=== PATIENT | female | born 1985 | race Caucasian/White ===

== ENCOUNTER 2017-04-26 20:30 | Emergency (ER) | payer OTHER ==
[2017-04-26 21:43] VITALS: BP 124/84
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
[2017-04-26] MEDS ORDERED: Cyclobenzaprine TAB* 10 MG PO ONE (22:44)
--- NOTE | 2017-04-27 07:20 | RAD ---
INDICATION: Trauma, low back pain. COMPARISON: There are no prior studies available for comparison. TECHNIQUE: 5 views of the lumbar spine were obtained including lateral, oblique, AP and a coned-down lateral view of the lumbar sacral junction. FINDINGS: There is a mild lumbar scoliosis convex toward the left side. The vertebra are otherwise in normal alignment. No fracture is seen. Disc spaces appear maintained. IMPRESSION: NO EVIDENCE FOR FRACTURE.
--- NOTE | 2017-04-27 07:23 | RAD ---
INDICATION: Trauma, back pain. COMPARISON: There are no prior studies available for comparison. TECHNIQUE: AP and lateral films of the dorsal spine were obtained. FINDINGS: There is a mild dorsal scoliosis convex toward the right side. The vertebra are otherwise in normal alignment. No fracture is seen. There is mild degenerative disc disease in the mid and lower dorsal spine. IMPRESSION: NO EVIDENCE FOR FRACTURE.
== END 2017-04-26 22:59 | disposition home or self-care (01) ==
LOC: UCCORT 20:30
DX: M54.5 Low back pain (principal); V89.2XXA Person injured in unspecified motor-vehicle accident, traffic, initial encounter; Y92.9 Unspecified place or not applicable; W00.0XXA Fall on same level due to ice and snow, initial encounter; Y93.9 Activity, unspecified; F17.210 Nicotine dependence, cigarettes, uncomplicated; Z32.02 Encounter for pregnancy test, result negative
CPT/HCPCS: 72070; 72110; 81003; 84702; 87086; 99212; A9270-GY; G0463

== ENCOUNTER 2017-05-26 20:01 | Emergency (ER) | payer OTHER ==
[2017-05-26 20:47] VITALS: BP 116/99
[2017-05-26] MEDS ORDERED: HYDROcodone/ACETAMIN 5-325 MG* 1 TAB PO ONE (21:01)
--- NOTE | 2017-05-26 21:29 | UC ---
Back Pain HPI - HPI Summary HPI Summary: 31 year old female with back pain .She was shoveling snow, today at 1830, fell and injury to right shoulder, states heard a "pop" after she fell. Can move shoulder. No incontinence. no numbness in arm or back. no foot drop . "tweaked" the back. it was the right shoulder that hurts and where she felt a pop. no numbness. pain with movement. waited for mom to get home to bring her here. did not hit head no QUIJANO. no vision changes [ End ] - History of Current Complaint Chief Complaint: UCUpperExtremity Stated Complaint: RIGHT SHOULDER & LOW BACK PAIN Time Seen by Provider: 05/26/17 20:56 Hx Obtained From: Patient Hx Last Menstrual Period: 05/12/17 Onset/Duration: Sudden Onset - ealier today Timing: Constant Pain Intensity: 9 - Allergies/Home Medications Allergies/Adverse Reactions: Allergies Allergy/AdvReac Type Severity Reaction Status Date / Time Adhesive Tape Allergy Rash Verified 05/26/17 20:47 ciprofloxacin [From Cipro] Allergy Hives Verified 05/26/17 20:49 Penicillins Allergy Rash Verified 05/26/17 20:49 PMH/Surg Hx/FS Hx/Imm Hx Previously Healthy: Yes - Surgical History Surgical History: None - Family History Known Family History: Positive: None, Diabetes Negative: Cardiac Disease - Social History Lives: With Family Alcohol Use: None Substance Use Type: None Smoking Status (MU): Former Smoker Type: Cigarettes Amount Used/How Often: 6 CIGarettes DAILY Length of Time of Smoking/Using Tobacco: 5 Years Have You Smoked in the Last Year: Yes When Did the Patient Quit Smoking/Using Tobacco: 01/11/14 Household Exposure Type: Cigarettes Review of Systems Musculoskeletal: Arthralgia, Decreased ROM Is Patient Immunocompromised?: No All Other Systems Reviewed And Are Negative: Yes Physical Exam Triage Information Reviewed: Yes Appearance: Well-Appearing, Pain Distress - moderate Vital Signs: Initial Vital Signs Temp 98.2 F 05/26/17 20:43 Pulse 85 05/26/17 20:43 Resp 18 05/26/17 20:43 BP 116/99 05/26/17 20:43 Pulse Ox 100 05/26/17 20:43 Vital Signs Reviewed: Yes Respiratory Exam: Normal Cardiovascular Exam: Normal Musculoskeletal: Positive: ROM Limited @ - Right shoulder with reduction in forward flexion. Cross arm (+) with some pain. Abduction reduced as well. no obvious dislocation felt in the shoulder. no humeral head disclocation palpable. clavicle intact. C spine WNL. Lumbar spine WNL and no sp tenderness. no step off. mild right paraspinal tenderness L3-4 to palpation., Other: - Mild right paraspinal tenderness. no sp tenderness no step off. neg slr. no red flags. gait antalgic except for walking and moving the shoulder which causes pain Neurological Exam: Normal Psychological Exam: Normal Skin Exam: Normal Back Pain Course/Dx - Course Course Of Treatment: no dislocation. placed in shuolder sling. f/u ortho. 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 could be rotator cuff tear. xray neg and per rads. pain almost gone at the last check up after taking meds. - Differential Dx/Diagnosis Provider Diagnoses: Rotator cuff injury/ low back strain Discharge - Discharge Plan Condition: Good Disposition: HOME Prescriptions: Ibuprofen TAB* [Motrin TAB* 600 MG] 600 mg PO Q8H PRN #30 tab PRN Reason: Pain Patient Education Materials: Rotator Cuff Injury (ED) Forms: *Work Release Referrals: Mike Tee MD [Medical Doctor] - 4 Days (Orthopedic referral for your shoulder )
--- NOTE | 2017-05-26 21:42 | RAD ---
INDICATION: Right shoulder injury. TECHNIQUE: 4 views of the right shoulder were obtained. FINDINGS: The bones are in normal alignment. No fracture is seen. Joint spaces appear maintained. IMPRESSION: NO EVIDENCE OF FRACTURE.
== END 2017-05-26 22:04 | disposition home or self-care (01) ==
LOC: UCCORT 20:01
DX: S46.001A Unspecified injury of muscle(s) and tendon(s) of the rotator cuff of right shoulder, initial encounter (principal); Z87.891 Personal history of nicotine dependence; W19.XXXA Unspecified fall, initial encounter; Y93.H1 Activity, digging, shoveling and raking; Y92.9 Unspecified place or not applicable; S39.012A Strain of muscle, fascia and tendon of lower back, initial encounter
CPT/HCPCS: 99213; G0463

== ENCOUNTER 2018-04-20 11:06 | Emergency (ER) | payer OTHER | END 2018-04-20 12:53 | disposition left against medical advice (07) | LOC: UCCORT 11:06 | DX: Z53.21 Procedure and treatment not carried out due to patient leaving prior to being seen by health care provider (principal) ==

== ENCOUNTER 2018-04-20 13:09 | Emergency (ER) | payer OTHER ==
--- NOTE | 2018-04-20 13:41 | ED ---
Influenza-Like Illness - HPI Summary HPI Summary: This patient is a 32 year old female presenting to [facility] accompanied by her daughter who also feels ill with a CC of flu like sx. She is c/o sore throat, dry cough, and diarrhea, without fever. The patient reports the pain 2/10 in severity. LNMP was 03-18-18. Hx of GERD - History of Current Complaint Chief Complaint: EDThroatPain Time Seen by Provider: 04/20/18 13:17 Hx Obtained From: Patient Onset/Duration: Still Present Severity: Moderate Associated Signs & Symptoms: Cough, Sore Throat - Allergy/Home Medications Allergies/Adverse Reactions: Allergies Allergy/AdvReac Type Severity Reaction Status Date / Time Adhesive Tape Allergy Rash Verified 04/20/18 13:15 ciprofloxacin [From Cipro] Allergy Hives Verified 04/20/18 13:15 Penicillins Allergy Rash Verified 04/20/18 13:15 PMH/Surg Hx/FS Hx/Imm Hx Endocrine/Hematology History: Reports: Hx Diabetes - type 2 Denies: Hx Thyroid Disease Cardiovascular History: Denies: Hx Hypertension, Hx Pacemaker/ICD Respiratory History: Reports: Hx Asthma Denies: Hx Chronic Obstructive Pulmonary Disease (COPD) GI History: Denies: Hx Ulcer History: Denies: Hx Renal Disease - RIGHT KIDNEY REFLUX Sensory History: Denies: Hx Hearing Aid Neurological History: Reports: Hx Migraine Psychiatric History: Denies: Hx Panic Disorder Infectious Disease History: No Infectious Disease History: Denies: Hx Clostridium Difficile, Hx Hepatitis, Hx Human Immunodeficiency Virus (HIV), Hx of Known/Suspected MRSA, Hx Shingles, Hx Tuberculosis, Hx Known/ Suspected VRE, Hx Known/Suspected VRSA, History Other Infectious Disease, Traveled Outside the [place] in Last 30 Days - Family History Known Family History: Positive: Diabetes Negative: Cardiac Disease - Social History Alcohol Use: None Substance Use Type: Reports: None Smoking Status (MU): Former Smoker Type: Cigarettes Amount Used/How Often: 6 CIGarettes DAILY Length of Time of Smoking/Using Tobacco: 5 Years Have You Smoked in the Last Year: Yes Review of Systems Negative: Fever Positive: Sore Throat Positive: Cough Positive: Diarrhea All Other Systems Reviewed And Are Negative: Yes Physical Exam - Summary Physical Exam Summary: VITAL SIGNS: Reviewed. GENERAL: Patient is a well-developed and obese female who is lying comfortable in the stretcher. Patient is not in any acute respiratory distress. HEAD AND FACE: No signs of trauma. No ecchymosis, hematomas or skull depressions. No sinus tenderness. EYES: PERRLA, EOMI x 2, No injected conjunctiva, no nystagmus. EARS: Hearing grossly intact. Ear canals and tympanic membranes are within normal limits. MOUTH: rhinorrhea. NECK: Supple, trachea is midline, no adenopathy, no JVD, no carotid bruit, no c- spine tenderness, neck with full ROM. CHEST: Symmetric, no tenderness at palpation LUNGS: Clear to auscultation bilaterally. No wheezing or crackles. CVS: Regular rate and rhythm, S1 and S2 present, no murmurs or gallops appreciated. ABDOMEN: Soft, non-tender. No signs of distention. No rebound no guarding, and no masses palpated. Bowel sounds are normal. EXTREMITIES: FROM in all major joints, no edema, no cyanosis or clubbing. NEURO: Alert and oriented x 3. No acute neurological deficits. Speech is normal and follows commands. SKIN: Dry and warm Triage Information Reviewed: Yes Vital Signs On Initial Exam: Initial Vitals Temp Pulse Resp BP Pulse Ox 98.7 F 84 16 135/98 96 04/20/18 13:13 04/20/18 13:13 04/20/18 13:13 04/20/18 13:13 04/20/18 13:13 Vital Signs Reviewed: Yes Diagnostics - Vital Signs Vital Signs Temp Pulse Resp BP Pulse Ox 04/20/18 13:13 98.7 F 84 16 135/98 96 - Laboratory Lab Statement: Any lab studies that have been ordered have been reviewed, and results considered in the medical decision making process. Flu Symptom Course/Dx - Course Assessment/Plan: Influenza A and B is negative. Rapid strep is negative. Therefore believe that the patient has an upper respiratory tract infection which with does not require any antibiotics. Patient will be discharged home with follow-up with primary care physician. She was recommended to return to the emergency department if she develops any other symptoms. - Diagnoses Differential Diagnosis/HQI/PQRI: Positive: Bronchitis, Broncholiolitis, Influenza, RSV, Upper Respiratory Infection Provider Diagnoses: URI (upper respiratory infection) Discharge - Sign-Out/Discharge Documenting (check all that apply): Patient Departure Patient Received Moderate/Deep Sedation with Procedure: No - Discharge Plan Condition: Stable Disposition: HOME Patient Education Materials: Upper Respiratory Infection (DC) Referrals: Shy Hawkins PA [Primary Care Provider] - Additional Instructions: Follow up with your primary care physician in 1-3 days. RETURN TO THE EMERGENCY DEPARTMENT FOR CHANGING OR WORSENING SYMPTOMS. - Billing Disposition and Condition Condition: STABLE Disposition: Home - Attestation Statements Document Initiated by Panfiloibe: Yes Documenting Scribe: Markos Wild Provider For Whom Tigist is Documenting (Include Credential): Wilder Stokes MD Scribe Attestation: Markos Nj , scribed for Wilder Stokes MD on 04/21/18 at 2050. Scribe Documentation Reviewed: Yes Provider Attestation: The documentation as recorded by the Markos guaman accurately reflects the service I personally performed and the decisions made by Wilder borges MD Status of Scribe Document: Viewed
[2018-04-20 14:10] LABS: Influenza A Molecular NEGATIVE (Negative); Influenza B Molecular NEGATIVE (Negative)
[2018-04-20 15:11] VITALS: BP 129/95
== END 2018-04-20 15:09 | disposition home or self-care (01) ==
LOC: ED 13:09
DX: J06.9 Acute upper respiratory infection, unspecified (principal); Z88.1 Allergy status to other antibiotic agents; Z88.0 Allergy status to penicillin; Z91.048 Other nonmedicinal substance allergy status; F17.210 Nicotine dependence, cigarettes, uncomplicated
CPT/HCPCS: 87651; 99282

== ENCOUNTER 2018-07-03 15:29 | Emergency (ER) | payer OTHER ==
[2018-07-03 15:36] VITALS: BP 133/96
--- NOTE | 2018-07-03 15:51 | UC ---
Respiratory Complaint HPI - HPI Summary HPI Summary: 32 yo female with cough x 1-2 days no fever cough not productive no f/c chest feels tight taking and deep breath cause cough - History of Current Complaint Chief Complaint: UCRespiratory Stated Complaint: DIFFICULTY BREATHING Hx Obtained From: Patient Hx Last Menstrual Period: "last month" Onset/Duration: Gradual Onset, Lasting Days Timing: Constant Severity Initially: Mild Severity Currently: Moderate Pain Intensity: 7 Pain Scale Used: 0-10 Numeric Character: Cough: Nonproductive Aggravating Factors: Deep Breaths, Nothing Alleviating Factors: Nothing Associated Signs And Symptoms: Positive: Dyspnea, Wheezing, Nasal Congestion, Sinus Discomfort - Allergies/Home Medications Allergies/Adverse Reactions: Allergies Allergy/AdvReac Type Severity Reaction Status Date / Time Adhesive Tape Allergy Rash Verified 07/03/18 15:33 ciprofloxacin [From Cipro] Allergy Hives Verified 07/03/18 15:33 Penicillins Allergy Rash Verified 07/03/18 15:33 Home Medications: Home Medications Ibuprofen TAB* [Advil TAB*] 400 mg PO Q6H PRN 07/03/18 [History Confirmed ] PMH/Surg Hx/FS Hx/Imm Hx Previously Healthy: Yes Respiratory History: Bronchitis - Surgical History Surgical History: None - Family History Known Family History: Positive: Hypertension, Diabetes, Respiratory Disease Negative: Cardiac Disease - Social History Alcohol Use: None Substance Use Type: None Smoking Status (MU): Former Smoker Type: Cigarettes Amount Used/How Often: 6 CIGarettes DAILY Length of Time of Smoking/Using Tobacco: 2 PPD x 13 Years Have You Smoked in the Last Year: Yes When Did the Patient Quit Smoking/Using Tobacco: ~2016 Household Exposure Type: Cigarettes Review of Systems All Other Systems Reviewed And Are Negative: Yes Constitutional: Positive: Fatigue Skin: Positive: Negative Eyes: Positive: Negative ENT: Positive: Nasal Discharge Respiratory: Positive: Shortness Of Breath, Cough Cardiovascular: Positive: Negative Gastrointestinal: Positive: Negative Genitourinary: Positive: Negative Motor: Positive: Negative Neurovascular: Positive: Negative Musculoskeletal: Positive: Negative Neurological: Positive: Negative Psychological: Positive: Negative Is Patient Immunocompromised?: No Physical Exam Triage Information Reviewed: Yes Appearance: Well-Appearing, No Pain Distress, Well-Nourished Vital Signs: Initial Vital Signs Temp 97.1 F 07/03/18 15:31 Pulse 83 07/03/18 15:31 Resp 24 07/03/18 15:31 BP 133/96 07/03/18 15:31 Pulse Ox 100 07/03/18 15:31 Vital Signs Reviewed: Yes Eyes: Positive: Conjunctiva Clear ENT: Positive: Hearing grossly normal, Nasal congestion, TMs normal, Uvula midline. Negative: Nasal drainage, Tonsillar swelling, Tonsillar exudate, Trismus, Muffled voice, Hoarse voice, Dental tenderness, Sinus tenderness Neck: Positive: Supple, Nontender, No Lymphadenopathy Respiratory: Positive: No respiratory distress, No accessory muscle use, Wheezing Cardiovascular: Positive: RRR, No Murmur Musculoskeletal: Positive: ROM Intact, No Edema Neurological Exam: Normal Neurological: Positive: Alert Psychological Exam: Normal Skin Exam: Normal Diagnostics - Radiology No standard instances Radiology Interpretation Completed By: Radiologist Summary of Radiographic Findings: normal Re-Evaluation - Re-Evaluation First Eval Re-Evaluation Time: 16:34 Change: Improved - markedly improved after neb/wheezing with forced expiration Second Eval Re-Evaluation Time: 17:17 Change: Improved - lungs clear Respiratory Course/Dx - Differential Dx/Diagnosis Provider Diagnosis: Acute bronchitis with bronchospasm, Elevated BP without diagnosis of hypertension Discharge - Sign-Out/Discharge Documenting (check all that apply): Patient Departure All imaging exams completed and their final reports reviewed: Yes - Discharge Plan Condition: Stable Disposition: HOME Patient Education Materials: Acute Bronchitis (ED) Referrals: Shy Hawkins PA [Primary Care Provider] - Additional Instructions: start prednisone in AM - Billing Disposition and Condition Condition: STABLE Disposition: Home
[2018-07-03] MEDS ORDERED: Ipratropium 0.5MG/2.5ML NEB* 0.5 MG/2.5 ML NEB.SOLN INH ONE ×2 (15:52→16:45)
[2018-07-03] MEDS ORDERED: Albuterol 2.5 MG/3 ML NEB.SOL* (0.083%) INH ONE ×2 (15:52→16:45)
== END 2018-07-03 17:28 | disposition home or self-care (01) ==
LOC: UCCORT 15:29
DX: J20.9 Acute bronchitis, unspecified (principal); R03.0 Elevated blood-pressure reading, without diagnosis of hypertension; Z87.891 Personal history of nicotine dependence; Z88.0 Allergy status to penicillin; Z88.1 Allergy status to other antibiotic agents; Z91.09 Other allergy status, other than to drugs and biological substances
CPT/HCPCS: 71046; 99213; G0463

== ENCOUNTER 2018-11-12 18:20 | Emergency (ER) | payer OTHER ==
--- OUTSIDE RECORDS SUMMARY | 2018-11-12 18:28 | XMS REPORT | Continuity of Care Document ---
:1985 External Reference #:[id number] Author Name Shy Hawkins PA Address [address] [place] [address] Problems Active Problems Provider Date Backache Lady Marroquin NP Onset: 06/09/2017 Social History Type Date Description Comments Sex Unknown Tobacco Use Start: Unknown End: Former Cigarette Smoker 4 pack year history, Unknown quit 2015 Smoking Status Reviewed: 06/21/17 Former Cigarette Smoker 4 pack year history, quit 2016 ETOH Use Denies alcohol use Recreational Drug Use Denies Drug Use Allergies, Adverse Reactions, Alerts Active Allergies Reaction Severity Comments Date Penicillin 05/27/2017 Cipro 05/27/2017 Adhesives 05/27/2017 Keflex 10/20/2018 Medications Active Medications SIG Qnty Indications Ordering Date Provider Prednisone 6 tablets by 21tabs M54.5 Danilo Whitaker, 10/20/2018 10mg Tablets mouth x 1 day DO then decrease by 1 pill daily until gone Cyclobenzaprine HCL 1 by mouth every 30tabs M54.5 Danilo Whitaker, 2018 10mg at bedtime x 1-2 DO Tablets weeks, then as needed for muscle spasm Ipratropium 1 vial via 180ml R05 Danilo Whitaker, 07/11/2018 [place]/Albuterol nebulizer every DO Sulfate 6 hours as 0.5-2.5(3)mg/3ML needed for Solution cough, wheezing Freestyle Insulinx test three times 100units R73.9 Danilo Whitaker, 2018 Blood Glucose Test a day and as DO needed Strips Freestyle Insulinx use as directed 1units Danilo Whitaker, 06/09/2018 Blood Glucose DO Monitoring System W/Device Kit Atorvastatin Calcium take one tablet 90tabs Sherman Danilo, 02/09/2018 80mg by mouth once DO Tablets daily. Lancets Micro Thin 33G use as directed 100units Danilo Whitaker, 2017 DO Thin 33G Misc Easyplus R13N use as directed 1units R73.9 Sherman Danilo, 06/21/2017 Self-Monitoring Blood DO Glucose System w/Device Kit Premium Blood Glucose check fsbs every 100units R73.9 Danilo Whitaker, 12/2017 Test Strips in the morning DO Strips Ibuprofen one by mouth 90tabs Danilo Whitaker, 06/21/2017 600mg Tablets every 8 hours as DO needed with food Tolterodine Tartrate 1 by mouth every Unknown ER day 4mg Caps ER 24HR History Medications Benzonatate 1 capsule up to 30caps R05 Danilo Whitaker, 07/11/2018 - 200mg 3 times a day as DO 10/19/2018 Capsules needed for cough Doxycycline Hyclate 1 tablet by 20caps R05 Danilo Whitaker, 07/11/2018 - 100mg mouth twice a DO 07/21/2018 Capsules day x 10 days Freestyle Lite Test use as directed 200units Danilo Whitaker, 06/09/2018 - daily and prn DO 06/09/2018 Strips Freestyle Lite Blood ck bs 1-2 x 1units Danilo Whitaker, 06/09/2018 - Glucose Monitoring every day DO 06/09/2018 System Device Freestyle Insulinx use as directed 1units Danilo Whitaker, 06/09/2018 - Blood Glucose DO 06/09/2018 Monitoring System W/Device Kit Bupropion HCL ER (SR) 1 by mouth twice 180tabs Shy Hawkins, 2018 - a day PA 05/24/2018 150mg Tablets ER 12HR Bupropion 1 by mouth twice 60tabs Danilo Whitaker, 05/24/2018 - Hydrochloride ER (SR) a day DO 10/19/2018 150mg Tablets ER 12HR Immunizations CPT Code Status Date Vaccine Reaction Lot # [id number] Given 12/07/2017 Tdap (Adacel) Ages 7 And Im inj completed, Pt [id number] Above Only tolerated well 28868 Refused 02/09/2018 Influenza Vac, Quadrivalent, Split, 0.5mL Dosage, Im Use Vital Signs Date Vital Result Comment 10/20/2018 8:23am Body Temperature 97.6 F Weight 278.00 lb Heart Rate 86 /min BP Systolic 136 mmHg BP Diastolic 84 mmHg Respiratory Rate 18 /min Height 65.5 inches 5'5.50" O2 % BldC Oximetry 97 % ra BMI (Body Mass Index) 45.6 kg/m2 07/11/2018 11:07am Body Temperature 98.7 F Weight 271.00 lb Heart Rate 72 /min BP Systolic 132 mmHg BP Diastolic 72 mmHg Respiratory Rate 18 /min Height 65.5 inches 5'5.50" O2 % BldC Oximetry 98 % BMI (Body Mass Index) 44.4 kg/m2 Results Test Date Facility Test Result H/L Range Note Urine HCG 10/07/[address] [facility] Urine HCG NEGATIVE Negative 1, 2 (Qualitative) (315)- - (Qualitative) Source: URINE, CLEAN CAT <SEE NOTE> 3 Urinalysis With 10/07/[address] [facility] Urine Color YELLOW Yellow Microscopic (315)- - Urine Clarity CLEAR Clear Urine Glucose - Dipstick NEGATIVE mg/dL Negative Urine Bilirubin - Dipstick NEGATIVE Negative Urine Ketone NEGATIVE mg/dL Negative Urine Specific [place] 1.010 Normal 1.010-1.030 Urine Blood LARGE Abnormal Negative Urine PH 5.5 Low 6.5-7.5 Urine Protein - Dipstick NEGATIVE mg/dL Negative Urine Urobilinogen - Dipstick 0.2 E.U./dL Normal 0.2-1.0 Urine Nitrite - Dipstick NEGATIVE Negative Urine Leuk Esterase SMALL Abnormal Negative Urine RBC 2-5 rbc/hpf 0-2 Urine WBC 5-10 wbc/hpf 0-7 Urine Epithelial Cells MODERATE /lpf None Seen 4 Urine Bacteria FEW None Seen Source: URINE, CLEAN CAT <SEE NOTE> 5 Urine Culture 10/07/[address] [facility] Urine Culture MIXED URETHRAL F 6, 7 (315)- - <SEE NOTE> Quantity 10,000 - 100,000 <SEE NOTE> 8 Urine HCG 07/15/[address] [facility] Urine HCG NEGATIVE Negative 9, 10 (Qualitative) (315)- - (Qualitative) Source: URINE, CLEAN CAT <SEE NOTE> 11 Urinalysis With 07/15/[address] [facility] Urine Color YELLOW Yellow Microscopic (315)- - Urine Clarity CLEAR Clear Urine Glucose - Dipstick NEGATIVE mg/dL Negative Urine Bilirubin - Dipstick NEGATIVE Negative Urine Ketone NEGATIVE mg/dL Negative Urine Specific [place] >= 1.030 Normal 1.010-1.030 Urine Blood TRACE Negative Urine PH 5.5 Low 6.5-7.5 Urine Protein - Dipstick TRACE mg/dL Negative Urine Urobilinogen - Dipstick 0.2 E.U./dL Normal 0.2-1.0 Urine Nitrite - Dipstick NEGATIVE Negative Urine Leuk Esterase SMALL Abnormal Negative Urine RBC 0-2 rbc/hpf 0-2 Urine WBC 30-50 wbc/hpf High 0-7 Urine Epithelial Cells MANY /lpf None Seen 12 Urine Bacteria MODERATE Abnormal None Seen Urine Amorph Sediment SMALL Negative Urine Yeast MODERATE None Seen Source: URINE, CLEAN CAT <SEE NOTE> 13 Urine Culture 07/15/2018 [facility] Urine Culture MIXED URETHRAL F 14 (315)- - <SEE NOTE> Quantity 10,000 - 100,000 <SEE NOTE> 15 1 LOWER BACK PAIN RADIATING TO ABD, URNINATION PAIN 2 FIRST MORNING SPECIMENS GENERALLY CONTAIN THE HIGHEST CONCENTRATION OF HCG AND ARE RECOMMENDED FOR EARLY DETECTION OF . Method: Quidel QuickVue One-Step Immunoassay 3 URINE, CLEAN CATCH 4 POSSIBLE UROGENITAL CONTAMINATION. 5 URINE, CLEAN CATCH 6 INTRACTABLE PAIN 7 MIXED URETHRAL TAMICA 8 10,000 - 100,000 CFU/mL SPECIMEN IS A MIX OF GRAM NEGATIVE AND GRAM POSITIVE ORGANISMS. UNABLE TO DETERMINE WHICH ORGANISMS ARE FROM THE URINARY TRACT OR THE RESULT OF SKIN VAGINAL PERIANAL CONTAMINATION DURING COLLECTION. SUGGEST REPEAT SPECIMEN IF CLINICALLY INDICATED. 9 LOWER BACK PAIN 10 FIRST MORNING SPECIMENS GENERALLY CONTAIN THE HIGHEST CONCENTRATION OF HCG AND ARE RECOMMENDED FOR EARLY DETECTION OF . Method: Quidel QuickVue One-Step Immunoassay 11 URINE, CLEAN CATCH 12 POSSIBLE UROGENITAL CONTAMINATION. POSSIBLE UROGENITAL CONTAMINATION. POSSIBLE UROGENITAL CONTAMINATION. 13 URINE, CLEAN CATCH 14 MIXED URETHRAL TAMICA 15 10,000 - 100,000 CFU/mL SPECIMEN IS A MIX OF GRAM POSITIVE ORGANISMS CONSISTENT WITH SKIN VAGINAL CONTAMINATION. SUGGEST REPEAT SPECIMEN IF CLINICALLY INDICATED. Procedures Date Code Description Status 07/11/2018 05249 Measure Blood Oxygen Level Single Determination Completed Medical Devices Description No Information Available Encounters Type Date Location Provider Dx Diagnosis Office Visit 07/11/2018 11:00a [facility] Shy Hawkins PA R05 Cough Z68.41 Body mass index (BMI) 40.0-44.9, adult Assessments Date Code Description Provider 10/20/2018 M54.5 Low back pain Shy Hawkins PA 10/20/2018 Z68.42 Body mass index (BMI) 45.0-49.9, adult Syh Hawkins PA 07/11/2018 R05 Cough Shy Hawkins PA 07/11/2018 Z68.41 Body mass index (BMI) 40.0-44.9, adult Shy Hawkins PA Plan of Treatment Future Appointment(s):11/14/2018 8:55 am - Schedule, Laboratory at [facility]2018 8:30 am - Shy Hawkins PA at [facility] Functional Status Description No Information Available Mental Status Description No Information Available Referrals Refer to Reason for Referral Status Appt Date [facility], [facility]RT Scheduled 11/08/2018 [address] [facility] [address] [phone]
--- OUTSIDE RECORDS SUMMARY | 2018-11-12 18:28 | XMS REPORT | Continuity of Care Document ---
:1985 Author Organization [facility] Address [address] [place] [address] Phone Care Team Providers Name Role Phone Velma Hansen Unavailable Unavailable Allergies, Adverse Reactions, Alerts Substance Reaction Status Penicillins Active cephalexin Active ciprofloxacin Active Medications Medication Instructions Dosage Effective Dates Status Comments (start - stop) testosterone cypionate inject 0.25 milliliter - Active 200 mg/mL (50mg) by intramuscular oil intramuscular route every week 10ml vial. code f BD Luer-Paul Syringe 1 Use as directed for - Active mL weekly IM injections. Each syringe will use 2 needles Hypodermic [place] 23 Use as directed for - Active gauge x 1 1/2" weekly IM injections, use for injecting Hypodermic [place] 21 Use as directed for - Active gauge x 1" weekly IM injections, use for drawing up medication Problems Condition Effective Dates (start - Clinical Status Comments stop) Human immunodeficiency virus [HIV] - counseling Encntr screen for dis of the bld[facility] Endocrine disorder, unspecified Transsexualism Procedures Procedure Date PREVENTIVE COUNSELING, Under 8 Minutes HEMOGLOBIN NEW PT TG EXP PROB FOCUSED LIPIDS PROFILE ROUTINE VENIPUNCTURE Results Test Name Date and Time Measure Units Reference Range Abnormal Flag Status Comments Panel Description: Hemoglobin Final Hemoglobin 12:41:07 13.00 gm/dL Final Advance Directives Directive Yes / No Effective Date File Name No information Encounters Encounter Practice Location Reason(s) Diagnoses Date Provider Providers Description For Visit Copied on Encounter [facility] TG Initial [facility] [place] [facility] [place] (chief immunodeficiency [address]. Provider: Katie berry) virus [HIV] [address] counseling[facility]ntr [place], [address] [place] the bld/bld-form [place], St, [place], [place], [place]/immun [place], [place], [place], [facility] [id number]. [place], [id number]. [id number], disorder, tel: tel: [place] unspecifiedTranssex [id number] tel: ualism [phone] Family History Family Member Diagnosis Age At Onset 1st degree relative No hx of cancer of breast, colon, endometrium or ovary 1st degree relative No hx of venous thromboembolism 1st degree relative No hx of coronary heart disease (female <65, male <55) Immunizations Vaccine Date Status Comments No information Payers Payer name Insurance type Covered democrat ID Authorization(s) Daniele TRIVEDI [facility] CI [id number] Social History Type Description Quantity Date Captured Comments Alcohol Use Details Unknown Caffeine Use Details Unknown Tobacco Use Status Unknown Smoking Status Former smoker Non-Smoking Tobacco : No Details Available : No Details Available 2018 Use Details Sex Female Vital Signs Date / Height Weight BMI Pulse Blood Temperature Respiratory Body Head BMI Pulse Inhaled Time: Rate Pressure Rate Surface Circumference percentile Ox Ox Area 66.00 282.00 45.5 138/80 -2019 in lbs 2 mm[Hg] 12:19 kg/m PM eter (2) Chief Complaint And Reason For Visit Most recent encounter only, dated '11/08/2018 11:50'. TG Initial (chief complaint). Description: Patient is here today for an initial visit. Patient&amp ;#39;s gender identity is Male. Patient's preferred pronoun is He, Him, His. Patient expresses strong desire for primary and/or secondary sex characteristics to align with gender other than ASAB and incongruence between experienced/expressed gender and primary and/or secondary sex characteristics. Age of awareness was 24. Patient is living as identified gender Patient is living identified genderat home, work and social. Patient has consulted a mental health provider. Coping with transition: Doing well. Sex assigned at was female. Patient's legal sex is female. No current/hx of injecting non-prescription hormones and/or silicone. The following body organ(s ) is/are present: breasts, cervix, ovaries, uterus and vagina. Reason For Referral Reason For Referral No information Plan Of Treatment Date Type Action Status Appointment [facility]* BOOKED History Of Present Illness Encounter Date Complaint History Of Present Illness TG Initial Patient is here today for an initial visit. Patient's gender identity is Male. Patient's preferred pronoun is He, Him, His. Patient expresses strong desire for primary and/or secondary sex characteristics to align with gender other than ASAB and incongruence between experienced/expressed gender and primary and/or secondary sex characteristics. Age of awareness was 24. Patient is living as identified gender Patient is living identified gender at home, work and social. Patient has consulted a mental health provider. Coping with transition: Doing well. Sex assigned at was female. Patient's legal sex is female. No current/hx of injecting non-prescription hormones and/or silicone. The following body organ(s) is/are present: breasts, cervix, ovaries, uterus and vagina. Functional Status Date Functional Assessment No information Medications Administered Medication Instructions Dosage Effective Dates (start - stop) Status Comments No information Instructions Date Instruction Additional Information No information Assessments Type Assessment Date assessment Human immunodeficiency virus [HIV] counseling assessment Encntr screen for dis of the bld/bld-form org/immun mechnsm assessment Endocrine disorder, unspecified assessment Transsexualism Goals Health Concern Goal Type Priority Status Date No information Medical Equipment Description Device [place] Device Identifier Effective Dates (start - stop ) Status No information Mental Status Date Cognitive Assessment Normal Orientation Health Concerns Observation Date No information Concern Status Date No information
[2018-11-12 18:33] VITALS: BP 155/101
[2018-11-12] MEDS ORDERED: Ondansetron ODT TAB* 4 MG PO ONE (18:51)
[2018-11-12] MEDS ORDERED: HYDROcodone/ACETAMIN 5-325 MG* 1 TAB PO ONE (18:51)
--- NOTE | 2018-11-12 19:02 | UC ---
UC General HPI - HPI Summary HPI Summary: pt is c/o pain in her R flank/R side of low back area since this am. + nausea but no v/d. + urinary frequency and burning. pt states she is not sure if it is a kidney stone of uti. she had a "nickel" size stone [address] Geiger did an ultrasound to break it up. she took 800mg of IB without relief. pt denies chance of . she is taking testosterone. pt went to the [facility]. After being told she would not see a doctor for 3 hours, she left and came here. in addition to her hx of kideny stone, she admits to having uti's and uti associated with a stone as well. she is uncertain if this is a uti, another stone or both. pt denies any abdominal pain, fever or hx of injury. she denies any numb/weak extremities and saddle anesthesia. pt's mother drove her here. - History of Current Complaint Chief Complaint: UCBackPain Stated Complaint: LOWER BACK PAIN Time Seen by Provider: 11/12/18 18:27 Hx Obtained From: Patient Hx Last Menstrual Period: 10/25/18 Timing: Constant Pain Intensity: 9 Aggravating: nothing Alleviating: nothing. - Allergy/Home Medications Allergies/Adverse Reactions: Allergies Allergy/AdvReac Type Severity Reaction Status Date / Time Adhesive Tape Allergy Rash Verified 11/12/18 18:33 cephalexin [From Keflex] Allergy Hives Verified 11/12/18 18:33 ciprofloxacin [From Cipro] Allergy Hives Verified 11/12/18 18:33 Penicillins Allergy Rash Verified 11/12/18 18:33 Home Medications: Home Medications Cholesterol Medication 50 mg DAILY 11/12/18 [History] Testosterone GEL (NF) [Androgel (NF)] 50 mg TOPICAL DAILY 11/12/18 [History Confirmed 11/12/18] PMH/Surg Hx/FS Hx/Imm Hx Respiratory History: Asthma GI/ History: Kidney Stones, Other - R ureteral reflux, UTI's - Surgical History Surgical History: None - Family History Known Family History: Positive: Hypertension, Diabetes, Respiratory Disease Negative: Cardiac Disease - Social History Alcohol Use: None Substance Use Type: None Smoking Status (MU): Former Smoker Type: Cigarettes Amount Used/How Often: 6 CIGarettes DAILY Length of Time of Smoking/Using Tobacco: 2 PPD x 13 Years Have You Smoked in the Last Year: Yes When Did the Patient Quit Smoking/Using Tobacco: ~2016 Household Exposure Type: Cigarettes Review of Systems All Other Systems Reviewed And Are Negative: Yes Constitutional: Negative: Fever, Chills Skin: Negative: Rash Gastrointestinal: Positive: Nausea, Other - R flank pain. Negative: Abdominal Pain, Vomiting, Diarrhea Genitourinary: Positive: Dysuria, Frequency, Urgency. Negative: Hematuria, Vaginal/Penile Discharge Musculoskeletal: Positive: Other: - R back pain. Negative: Decreased ROM Neurological: Negative: Numbness Physical Exam Triage Information Reviewed: Yes Appearance: Other: - appears mildly uncomfortable Vital Signs: Initial Vital Signs Temp 98.1 F 11/12/18 18:29 Pulse 108 11/12/18 18:29 Resp 18 11/12/18 18:29 BP 155/101 11/12/18 18:29 Pulse Ox 100 11/12/18 18:29 Vital Signs Reviewed: Yes Eyes: Positive: Conjunctiva Clear ENT: Positive: Normal ENT inspection Neck: Positive: Supple, Nontender, No Lymphadenopathy, Other: - c-spine non tender Respiratory: Positive: Lungs clear, Normal breath sounds, No respiratory distress Cardiovascular: Positive: No Murmur, Tachycardia - 100 Abdomen Description: Positive: Nontender, No Organomegaly, Soft, CVA Tenderness (R). Negative: CVA Tenderness (L), Distended, Guarding Bowel Sounds: Positive: Present Musculoskeletal: Positive: Other: - Back=No deformity or rash. Throacic and lumbar spine are non tender. ROM intact throughout without pain. 5/5 strenght, 2 + reflexes and sensation intact x4. No saddle anesthesia. steady gait. Neurological: Positive: Alert Psychological: Positive: Age Appropriate Behavior Skin Exam: Normal Skin: Negative: Rashes Diagnostics - Laboratory Lab Results: u/a=1+ protein, 1+blood and 1+ leukocytes. urine culture is pending. CT and ultrasound not available here tonight and pt refusing transfer to any ER thus KUB ordered and NAD. Course/Dx - Course Course Of Treatment: It is unclear if this is renal colic, uti or a complicated uti from renal stone thus ER transfer advised. pt is refusing ER transfer despite risk of worsening, disability and . She is a&ox3 and able to make decisions thus I must respect her refusal to go to the ER. i will tx her nausea and pain her plus do a KUB because to not evaluate and tx as much as possible is not in her best interest. I will also tx with Bactrim to cover for uti/uti from obstruction/ pyelonephritis - Differential Dx - Multi-Symptom Differential Diagnoses: Other - UTI vs kidney stone vs complicated UTI from kidney stone. - Diagnoses Provider Diagnosis: Back pain, Right flank pain Discharge ED - Sign-Out/Discharge Documenting (check all that apply): Patient Departure All imaging exams completed and their final reports reviewed: No - Discharge Plan Condition: Stable Disposition: AGAINST MEDICAL ADVICE Prescriptions: Sulfamethox/Trimethoprim DS* [Bactrim DS 800/160 TAB*] 1 tab PO BID 7 Days #14 tab Forms: *Work Release Referrals: Jaya Geiger MD [Medical Doctor] - 2 Days Additional Instructions: PLEASE GO TO THE ER AT ANY TIME IF YOU CHANGE YOUR MIND. FOLLOW UP WITH YOUR UROLOGIST FIRST THING TUESDAY AM WHEN THEY OPEN AFTER THE HOLIDAY. - Billing Disposition and Condition Condition: STABLE Disposition: Against Medical Advice - Attestation Statements Provider Attestation: I was available for consult. This patient was seen by the DONOVAN. The patient was not presented to , seen by or examined by ok -Wade Baca MD
[2018-11-12] MEDS ORDERED: Sulfamethox/Trimethoprim DS 800/160* TAB PO ONE (19:30)
--- NOTE | 2018-11-13 09:34 | UC ---
- Progress Note Progress Note: Final radiologist reading of abdominal x-ray from November 12, 2018 comes back as no radiopaque calculi is noted. Provider interpretation St. it is same therefore there is no discrepancy. Course/Dx - Diagnoses Provider Diagnoses: Back pain, Right flank pain Discharge ED - Sign-Out/Discharge Documenting (check all that apply): Patient Departure All imaging exams completed and their final reports reviewed: Yes - Discharge Plan Condition: Stable Disposition: AGAINST MEDICAL ADVICE Prescriptions: Sulfamethox/Trimethoprim DS* [Bactrim DS 800/160 TAB*] 1 tab PO BID 7 Days #14 tab Forms: *Work Release Referrals: Jaya Geiger MD [Medical Doctor] - 2 Days Additional Instructions: PLEASE GO TO THE ER AT ANY TIME IF YOU CHANGE YOUR MIND. FOLLOW UP WITH YOUR UROLOGIST FIRST THING TUESDAY AM WHEN THEY OPEN AFTER THE HOLIDAY. - Billing Disposition and Condition Condition: STABLE Disposition: Against Medical Advice
== END 2018-11-12 19:57 | disposition left against medical advice (07) ==
LOC: UCCORT 18:20
DX: M54.9 Dorsalgia, unspecified (principal); R10.9 Unspecified abdominal pain; Z87.442 Personal history of urinary calculi; Z87.891 Personal history of nicotine dependence
CPT/HCPCS: 74018; 81003; 87086; 99212; A9270-GY; G0463

== ENCOUNTER 2020-03-11 15:08 | Inpatient (IN) ==
[2020-03-11] MEDS ORDERED: Ondansetron 4 mg VIAL 2 MG/ML 2 ml VIAL IV ONE (16:53)
[2020-03-11] MEDS ORDERED: Metoclopramide 5 MG/ML VIAL (10 mg) IV SLOW PU ONE (16:53)
[2020-03-11] MEDS ORDERED: Morphine 4 MG/ML VIAL (1 ml) IV ONE (16:57)
[2020-03-11 17:16] LABS: ABS Eosinophils 0.1 10^3/ul (0-0.6); ABS Lymphocytes 2.8 10^3/ul (1.0-4.8); ABS Monocytes 0.6 10^3/ul (0-0.8); ABS Neutrophils 3.2 10^3/ul (1.5-7.7); Eosinophil % 1.8 %; Hematocrit 48 % (35-47); Hemoglobin 16.3 g/dL (12.0-16.0); Lymphocyte % 41.6 %; Mean Corpuscular HGB Conc 34 g/dL (31-36); Mean Corpuscular Hemoglobin 29 pg (27-31); Mean Corpuscular Volume 87 fL (80-97); Mean Platelet Volume 8.3 fL (7.4-10.4); Nucleated Red Blood Cells % 0.2; Platelet Count 262 10^3/uL (150-450); Red Blood Count 5.58 10^6 /uL (3.70-4.87); Red Cell Distribution Width 15 % (10-15); White Blood Count 6.8 10^3/uL (3.5-10.8)
[2020-03-11] MEDS ORDERED: Thiamine 100 MG/ML 2 ml VIAL 100 MG, Folic Acid 1 MG, Multiple Vitamin IV ADULT 10 ML i... IV ONE (17:30)
[2020-03-11 17:34] LABS: ALT 23 U/L (7-52); AST 21 U/L (13-39); Albumin 4.6 g/dL (3.2-5.2); Albumin/Globulin Ratio 1.8 (1-3); Alkaline Phosphatase 64 U/L (34-104); Anion Gap 6 mmol/L (2-11); Blood Urea Nitrogen 9 mg/dL (6-24); C Reactive Protein < 1.00 mg/L (<8.01); CO2 Carbon Dioxide 28 mmol/L (22-32); Calcium 9.6 mg/dL (8.6-10.3); Chloride 106 mmol/L (101-111); EGFR African American 77.7 (>60); EGFR Non-African American 64.3 (>60); Globulin 2.6 g/dL (2-4); Glucose 76 mg/dL (70-100); Lipase 27 U/L (11.0-82.0); Magnesium 2.2 mg/dL (1.9-2.7); Potassium 3.7 mmol/L (3.5-5.0); Sodium 140 mmol/L (135-145); Total Protein 7.2 g/dL (6.4-8.9)
[2020-03-11 17:39] LABS: HCG Pregnancy < 0.60 mIU/mL
[2020-03-11] MEDS ORDERED: Iodixanol (CONTRAST) 320 MG/ML 100 ML SDV IV ONE (17:43)
[2020-03-11] MEDS ORDERED: Lorazepam PYXIS KEY PRN (17:52)
[2020-03-11] MEDS ORDERED: LORazepam 2 mg VIAL 1 ml IV PUSH ONE (17:52)
[2020-03-11 20:19] LABS: Urine Appearance Clear; Urine Bacteria 1+ (Absent); Urine Bilirubin Negative (Negative); Urine Blood Negative (Negative); Urine Color Yellow; Urine Glucose Negative (Negative); Urine Ketones Negative (Negative); Urine Nitrite Negative (Negative); Urine Protein 2+(100 mg/dL) (Negative); Urine Red Blood Cell Absent (Absent); Urine Urobilinogen Positive (Negative); Urine White Blood Cell Trace(0-5/hpf) (Absent)
[2020-03-11 20:40] LABS: Urine Specific Gravity > 1.059 (1.010-1.030)
[2020-03-11] MEDS: HYDROmorphone 0.5 MG/0.5 ML SYRINGE IV SLOW PU PRN (22:06)
[2020-03-11] MEDS: Ondansetron 4 mg VIAL 2 MG/ML 2 ml VIAL IV PRN (22:07)
[2020-03-11] MEDS: Metoclopramide 5 MG/ML VIAL (10 mg) IV PRN (22:07)
[2020-03-12] MEDS: Lactated Ringers 1000 ml BAG 1,000 ML IVPB SCH ×3 (00:14→19:50)
[2020-03-12 05:38] LABS: ABS Eosinophils 0.1 10^3/ul (0-0.6); ABS Lymphocytes 2.7 10^3/ul (1.0-4.8); ABS Monocytes 0.7 10^3/ul (0-0.8); ABS Neutrophils 4.7 10^3/ul (1.5-7.7); Eosinophil % 1.7 %; Hematocrit 41 % (35-47); Hemoglobin 13.7 g/dL (12.0-16.0); Lymphocyte % 32.6 %; Mean Corpuscular HGB Conc 33 g/dL (31-36); Mean Corpuscular Hemoglobin 29 pg (27-31); Mean Corpuscular Volume 87 fL (80-97); Mean Platelet Volume 7.8 fL (7.4-10.4); Platelet Count 216 10^3/uL (150-450); Red Blood Count 4.75 10^6 /uL (3.70-4.87); Red Cell Distribution Width 14 % (10-15); White Blood Count 8.2 10^3/uL (3.5-10.8)
[2020-03-12 06:08] LABS: Albumin 3.5 g/dL (3.2-5.2); Albumin/Globulin Ratio 1.7 (1-3); BUN/Creatinine Ratio 7.8 (8-20); Calcium 8.6 mg/dL (8.6-10.3); EGFR African American 75.1 (>60); EGFR Non-African American 62.1 (>60); Globulin 2.1 g/dL (2-4); Potassium 3.7 mmol/L (3.5-5.0); Total Protein 5.6 g/dL (6.4-8.9)
[2020-03-12] MEDS: HYDROmorphone 0.5 MG/0.5 ML SYRINGE IV SLOW PU PRN (08:40)
[2020-03-12] MEDS: Ondansetron 4 mg VIAL 2 MG/ML 2 ml VIAL IV PRN (08:40)
[2020-03-12] MEDS ORDERED: Influenza VAC *QUAD* 2020-21* 0.5 ML SYRINGE IM ONE (09:00)
[2020-03-12] MEDS: Metoclopramide 5 MG/ML VIAL (10 mg) IV PRN ×2 (10:29→18:02)
[2020-03-12] MEDS ORDERED: diPHENhydraMINE IV 50 MG/ML 1 ml VIAL (BENADRYL) ONE (11:09)
[2020-03-12] MEDS ORDERED: Midazolam 10 mg/10 ml VIAL 1 mg/ml 10 ml VIAL (10 mg) ONE (11:09)
[2020-03-12] MEDS ORDERED: fentaNYL 100 mcg/2 ml 50 MCG/ML VIAL ONE (11:09)
[2020-03-13] MEDS: Lactated Ringers 1000 ml BAG 1,000 ML IVPB SCH (03:57)
[2020-03-13 04:57] LABS: Hematocrit 41 % (35-47); Hemoglobin 13.8 g/dL (12.0-16.0); Mean Corpuscular HGB Conc 34 g/dL (31-36); Mean Corpuscular Hemoglobin 29 pg (27-31); Mean Corpuscular Volume 86 fL (80-97); Mean Platelet Volume 8.1 fL (7.4-10.4); Platelet Count 211 10^3/uL (150-450); Red Blood Count 4.78 10^6 /uL (3.70-4.87); Red Cell Distribution Width 14 % (10-15); White Blood Count 5.9 10^3/uL (3.5-10.8)
[2020-03-13 05:18] LABS: Albumin 3.5 g/dL (3.2-5.2); Albumin/Globulin Ratio 1.7 (1-3); BUN/Creatinine Ratio 5.7 (8-20); Calcium 8.7 mg/dL (8.6-10.3); EGFR African American 90.1 (>60); EGFR Non-African American 74.5 (>60); Globulin 2.1 g/dL (2-4); Magnesium 1.8 mg/dL (1.9-2.7); Phosphorus 2.9 mg/dL (2.5-5.0); Potassium 3.7 mmol/L (3.5-5.0); Total Bilirubin 1.4 mg/dL (0.2-1.0); Total Protein 5.6 g/dL (6.4-8.9)
[2020-03-13 05:53] LABS: Vitamin D Total 25(OH) 14.4 ng/mL (20-50)
[2020-03-13] MEDS ORDERED: Magnesium Sulfate 2 gm BAG 2 GM/50 ML BAG IVPB ONE (07:41)
[2020-03-13 11:22] VITALS: BP 126/51
== END 2020-03-13 14:30 | disposition home or self-care (01) | DRG 220 ==
LOC: ED 15:08 → SSU 19:54
PROVIDERS: ADMIT Surgery Surgical Critical Care; ATTEND Surgery Surgical Critical Care

== ENCOUNTER 2020-03-19 14:46 | Inpatient (IN) ==
[2020-03-19 18:02] LABS: ABS Eosinophils 0.1 10^3/ul (0-0.6); ABS Lymphocytes 2.7 10^3/ul (1.0-4.8); ABS Monocytes 0.5 10^3/ul (0-0.8); ABS Neutrophils 3.4 10^3/ul (1.5-7.7); Eosinophil % 0.8 %; Hematocrit 47 % (35-47); Hemoglobin 15.7 g/dL (12.0-16.0); Lymphocyte % 40.6 %; Mean Corpuscular HGB Conc 33 g/dL (31-36); Mean Corpuscular Hemoglobin 29 pg (27-31); Mean Corpuscular Volume 87 fL (80-97); Mean Platelet Volume 8.2 fL (7.4-10.4); Nucleated Red Blood Cells % 0.1; Platelet Count 257 10^3/uL (150-450); Red Blood Count 5.42 10^6 /uL (3.70-4.87); Red Cell Distribution Width 15 % (10-15); White Blood Count 6.7 10^3/uL (3.5-10.8)
[2020-03-19 18:17] LABS: ALT 17 U/L (7-52); AST 18 U/L (13-39); Albumin 4.5 g/dL (3.2-5.2); Alkaline Phosphatase 59 U/L (34-104); Anion Gap 6 mmol/L (2-11); BUN/Creatinine Ratio 7.4 (8-20); Blood Urea Nitrogen 8 mg/dL (6-24); C Reactive Protein < 1.00 mg/L (<8.01); CO2 Carbon Dioxide 27 mmol/L (22-32); Calcium 9.6 mg/dL (8.6-10.3); Chloride 107 mmol/L (101-111); EGFR African American 71.1 (>60); EGFR Non-African American 58.8 (>60); Globulin 2.3 g/dL (2-4); Glucose 77 mg/dL (70-100); Lipase 23 U/L (11.0-82.0); Magnesium 2.1 mg/dL (1.9-2.7); Sodium 140 mmol/L (135-145); Total Protein 6.8 g/dL (6.4-8.9)
[2020-03-19 18:23] LABS: HCG Pregnancy < 0.60 mIU/mL
[2020-03-19] MEDS ORDERED: Thiamine 100 MG/ML 2 ml VIAL 100 MG, Folic Acid 1 MG, Multiple Vitamin IV ADULT 10 ML i... IV ONE (18:28)
[2020-03-19] MEDS ORDERED: Albuterol HFA INHALER 8 gm MDI INH PRN (20:38)
[2020-03-19] MEDS: Ondansetron 4 mg VIAL 2 MG/ML 2 ml VIAL IV PRN (23:08)
[2020-03-19] MEDS: Morphine 2 MG/ML SYRINGE IV PRN (23:45)
[2020-03-19 23:49] LABS: Urine Appearance Cloudy; Urine Bilirubin Negative (Negative); Urine Blood Negative (Negative); Urine Color Amber; Urine Glucose Negative (Negative); Urine Ketones Trace (Negative); Urine Nitrite Negative (Negative); Urine Protein 2+(100 mg/dL) (Negative); Urine Urobilinogen Positive (Negative)
[2020-03-20 00:07] LABS: Urine Bacteria Absent (Absent); Urine Red Blood Cell 3+(>10/hpf) (Absent); Urine Squamous Epithelial Cell Present (Absent); Urine White Blood Cell 3+(>20/hpf) (Absent)
[2020-03-20] MEDS: Lactated Ringers 1000 ml BAG 1,000 ML IV SCH ×3 (01:35→19:43)
[2020-03-20] MEDS: Morphine 2 MG/ML SYRINGE IV PRN ×6 (01:56→22:57)
[2020-03-20 04:40] LABS: ABS Eosinophils 0.1 10^3/ul (0-0.6); ABS Lymphocytes 2.9 10^3/ul (1.0-4.8); ABS Monocytes 0.5 10^3/ul (0-0.8); ABS Neutrophils 2.6 10^3/ul (1.5-7.7); Eosinophil % 1.3 %; Hematocrit 43 % (35-47); Hemoglobin 14.1 g/dL (12.0-16.0); Lymphocyte % 47.8 %; Mean Corpuscular HGB Conc 33 g/dL (31-36); Mean Corpuscular Hemoglobin 29 pg (27-31); Mean Corpuscular Volume 88 fL (80-97); Mean Platelet Volume 8.2 fL (7.4-10.4); Nucleated Red Blood Cells % 0.1; Platelet Count 217 10^3/uL (150-450); Red Blood Count 4.91 10^6 /uL (3.70-4.87); Red Cell Distribution Width 14 % (10-15); White Blood Count 6.1 10^3/uL (3.5-10.8)
[2020-03-20] MEDS: Ondansetron 4 mg VIAL 2 MG/ML 2 ml VIAL IV PRN ×4 (08:04→23:43)
[2020-03-20] MEDS ORDERED: Metoclopramide 5 MG/ML VIAL (10 mg) ONE (10:13)
[2020-03-20] MEDS ORDERED: HYDROmorphone 0.5 MG/0.5 ML SYRINGE IV SLOW PU PRN (10:40)
[2020-03-20 11:29] LABS: Hematocrit 43 % (35-47); Hemoglobin 14.4 g/dL (12.0-16.0); Mean Corpuscular HGB Conc 33 g/dL (31-36); Mean Corpuscular Hemoglobin 29 pg (27-31); Mean Corpuscular Volume 87 fL (80-97); Mean Platelet Volume 8.1 fL (7.4-10.4); Platelet Count 233 10^3/uL (150-450); Red Blood Count 4.96 10^6 /uL (3.70-4.87); Red Cell Distribution Width 14 % (10-15); White Blood Count 5.9 10^3/uL (3.5-10.8)
[2020-03-20 12:02] LABS: Albumin 3.8 g/dL (3.2-5.2); Albumin/Globulin Ratio 1.7 (1-3); BUN/Creatinine Ratio 11.7 (8-20); Calcium 8.4 mg/dL (8.6-10.3); EGFR African American 83.5 (>60); Globulin 2.3 g/dL (2-4); Potassium 3.8 mmol/L (3.5-5.0); Total Bilirubin 1.8 mg/dL (0.2-1.0); Total Protein 6.1 g/dL (6.4-8.9)
[2020-03-21] MEDS: Lactated Ringers 1000 ml BAG 1,000 ML IV SCH ×3 (03:38→19:13)
[2020-03-21] MEDS: Ondansetron 4 mg VIAL 2 MG/ML 2 ml VIAL IV PRN ×3 (09:07→18:18)
[2020-03-21 09:23] LABS: Albumin 3.5 g/dL (3.2-5.2); Albumin/Globulin Ratio 1.8 (1-3); BUN/Creatinine Ratio 6.5 (8-20); Calcium 8.4 mg/dL (8.6-10.3); EGFR African American 85.6 (>60); EGFR Non-African American 70.7 (>60); Magnesium 1.8 mg/dL (1.9-2.7); Phosphorus 3.4 mg/dL (2.5-5.0); Total Bilirubin 1.4 mg/dL (0.2-1.0); Total Protein 5.5 g/dL (6.4-8.9)
[2020-03-21] MEDS ORDERED: Sodium Phosphate IV 15 MMOLE in NS 0.9% 250 ml 250 ML IVPB ONE (10:19)
[2020-03-21] MEDS ORDERED: Magnesium Sulfate IV 1GM/100ML 1 GM/100 ML BAG IV ONE (10:19)
[2020-03-21] MEDS: Metoclopramide 5 MG/ML VIAL (10 mg) IV PRN (16:47)
[2020-03-22] MEDS: Lactated Ringers 1000 ml BAG 1,000 ML IV SCH ×3 (03:15→18:39)
[2020-03-22] MEDS: Metoclopramide 5 MG/ML VIAL (10 mg) IV PRN ×2 (04:33→13:10)
[2020-03-22] MEDS: Ondansetron 4 mg VIAL 2 MG/ML 2 ml VIAL IV PRN ×2 (14:14→18:04)
[2020-03-23] MEDS: Lactated Ringers 1000 ml BAG 1,000 ML IV SCH ×3 (03:05→20:03)
[2020-03-23] MEDS: Metoclopramide 5 MG/ML VIAL (10 mg) IV PRN ×2 (10:05→18:19)
[2020-03-23] MEDS: Neomycin/Polym/Bacit TOP OINT 15 GM TOPICAL SCH (22:23)
[2020-03-24] MEDS ORDERED: Acetaminophen IV 1 GM/100ML 100 ML IVPB SCH
[2020-03-24] MEDS ORDERED: Ondansetron 4 mg VIAL 2 MG/ML 2 ml VIAL IV SCH
[2020-03-24] MEDS ORDERED: fentaNYL 250 mcg/5 ml 50 MCG/ML 5 ml VIAL (250 MCG) IV SCH
[2020-03-24] MEDS ORDERED: Clindamycin 900 MG/D5W BAG 900 MG/50 ML BAG IVPB SCH
[2020-03-24] MEDS ORDERED: Lidocaine 2% PF 5 ML VIAL IV SCH
[2020-03-24] MEDS ORDERED: EPHEDrine (Pressors) 50 MG/ML VIAL IV SLOW PU SCH
[2020-03-24] MEDS ORDERED: Midazolam 2 mg/2 ml VIAL 1 mg/ml 2 ml VIAL (2 mg) IV SLOW PU SCH
[2020-03-24] MEDS ORDERED: Rocuronium 50 mg VIAL 10 mg/ml 5 ml VIAL (50 mg) IV SCH ×2
[2020-03-24] MEDS ORDERED: Propofol 10 MG/ML 20 ML BTL IV SCH
[2020-03-24] MEDS ORDERED: HYDROmorphone 1 MG/1 ML SYRINGE IV SCH
[2020-03-24] MEDS ORDERED: Dexamethasone IV 4 MG/ML VIAL 1 ml VIAL IV SLOW PU SCH
[2020-03-24] MEDS: Lactated Ringers 1000 ml BAG 1,000 ML IV SCH ×2 (06:02→19:47)
[2020-03-24] MEDS ORDERED: Naloxone 0.4 mg VIAL 0.4 mg/ml 1 ml VIAL IV PRN ×2 (10:52→13:50)
[2020-03-24] MEDS ORDERED: DiMENhydriNATE IV 50 mg/ml 1 ml VIAL IV PUSH PRN ×2 (10:52→13:50)
[2020-03-24] MEDS ORDERED: fentaNYL 100 mcg/2 ml 50 MCG/ML VIAL IV PRN ×2 (10:52→13:50)
[2020-03-24] MEDS: Neomycin/Polym/Bacit TOP OINT 15 GM TOPICAL SCH ×2 (13:32→15:22)
[2020-03-24] MEDS ORDERED: fentaNYL 100 mcg/2 ml 50 MCG/ML VIAL ONE (13:59)
[2020-03-24] MEDS ORDERED: DiMENhydriNATE IV 50 mg/ml 1 ml VIAL ONE (14:06)
[2020-03-24] MEDS ORDERED: Morphine 2 MG/ML SYRINGE ONE (15:14)
[2020-03-24] MEDS: Ondansetron 4 mg VIAL 2 MG/ML 2 ml VIAL IV PRN ×2 (15:19→19:50)
[2020-03-24] MEDS: Morphine 2 MG/ML SYRINGE IV PRN ×2 (17:32→19:52)
[2020-03-25] MEDS: Morphine 2 MG/ML SYRINGE IV PRN ×4 (00:08→08:08)
[2020-03-25] MEDS: Lactated Ringers 1000 ml BAG 1,000 ML IV SCH (03:42)
[2020-03-25 05:45] LABS: ABS Lymphocytes 1.2 10^3/ul (1.0-4.8); ABS Monocytes 0.8 10^3/ul (0-0.8); Hematocrit 43 % (35-47); Hemoglobin 14.3 g/dL (12.0-16.0); Lymphocyte % 13.6 %; Mean Corpuscular HGB Conc 33 g/dL (31-36); Mean Corpuscular Hemoglobin 29 pg (27-31); Mean Corpuscular Volume 87 fL (80-97); Mean Platelet Volume 8.5 fL (7.4-10.4); Nucleated Red Blood Cells % 0.1; Platelet Count 212 10^3/uL (150-450); Red Blood Count 4.95 10^6 /uL (3.70-4.87); Red Cell Distribution Width 14 % (10-15)
[2020-03-25 06:04] LABS: BUN/Creatinine Ratio 7.1 (8-20); Calcium 8.8 mg/dL (8.6-10.3); EGFR African American 93.8 (>60); EGFR Non-African American 77.5 (>60); Magnesium 1.8 mg/dL (1.9-2.7); Potassium 3.9 mmol/L (3.5-5.0)
[2020-03-25] MEDS ORDERED: HYDROcodone/ACET. 7.5/325 LIQ 15 ML UDC J TUBE PRN (09:34)
[2020-03-25] MEDS: oxyCODONE/Acetamin 5/325 mg TAB PO PRN ×3 (11:12→21:52)
[2020-03-25] MEDS: Ondansetron 4 mg VIAL 2 MG/ML 2 ml VIAL IV PRN ×2 (15:08→18:30)
[2020-03-25] MEDS ORDERED: Magnesium Sulfate 2 gm BAG 2 GM/50 ML BAG IVPB ONE (15:24)
[2020-03-26] MEDS: oxyCODONE/Acetamin 5/325 mg TAB PO PRN ×2 (08:34→19:27)
[2020-03-26] MEDS: Ondansetron 4 mg VIAL 2 MG/ML 2 ml VIAL IV PRN ×3 (13:48→22:28)
[2020-03-26] MEDS ORDERED: Metoclopramide 5 MG/ML VIAL (10 mg) IV ONE (15:24)
[2020-03-26] MEDS ORDERED: Metoclopramide 5 MG/ML VIAL (10 mg) ONE (15:34)
[2020-03-26] MEDS: Heparin 5000 UNITS/ML 1 mL VIAL SUBCUT SCH ×2 (15:59→22:27)
[2020-03-26] MEDS: Morphine 2 MG/ML SYRINGE IV PRN (22:34)
[2020-03-27] MEDS: oxyCODONE/Acetamin 5/325 mg TAB PO PRN ×2 (06:03→11:51)
[2020-03-27] MEDS: Heparin 5000 UNITS/ML 1 mL VIAL SUBCUT SCH (06:04)
[2020-03-27 11:26] VITALS: BP 153/81
== END 2020-03-27 13:39 | disposition home health service (06) | DRG 263 ==
LOC: ED 14:46 → SSU 14:46
PROVIDERS: ADMIT Surgery; ATTEND Surgery

== ENCOUNTER 2020-05-18 15:12 | Inpatient (IN) ==
[2020-05-18] MEDS ORDERED: NS 0.9% 1000 ml BAG 2,000 ML IV ONE (15:28)
[2020-05-18 16:10] LABS: ABS Eosinophils 0.1 10^3/ul (0-0.6); ABS Lymphocytes 2.5 10^3/ul (1.0-4.8); ABS Monocytes 0.5 10^3/ul (0-0.8); Eosinophil % 1.1 %; Hematocrit 44 % (35-47); Hemoglobin 15.1 g/dL (12.0-16.0); Lymphocyte % 35.1 %; Mean Corpuscular HGB Conc 34 g/dL (31-36); Mean Corpuscular Hemoglobin 30 pg (27-31); Mean Corpuscular Volume 86 fL (80-97); Platelet Count 254 10^3/uL (150-450); Red Blood Count 5.13 10^6 /uL (3.70-4.87); Red Cell Distribution Width 14 % (10-15)
[2020-05-18 16:24] LABS: Activated Partial Thrombo Time 31.1 seconds (26.0-38.0); Albumin 4.1 g/dL (3.2-5.2); Albumin/Globulin Ratio 1.4 (1-3); BUN/Creatinine Ratio 9.5 (8-20); C Reactive Protein 4.47 mg/L (<8.01); Calcium 9.4 mg/dL (8.6-10.3); EGFR African American 82.5 (>60); EGFR Non-African American 68.2 (>60); INR 1.1 (0.82-1.09); Potassium 3.6 mmol/L (3.5-5.0); Total Bilirubin 0.8 mg/dL (0.2-1.0); Total Protein 7.1 g/dL (6.4-8.9)
[2020-05-18] MEDS ORDERED: Ondansetron 4 mg VIAL 2 MG/ML 2 ml VIAL IV ONE (17:40)
[2020-05-18] MEDS ORDERED: Morphine 4 MG/ML VIAL (1 ml) IV ONE (17:40)
[2020-05-18] MEDS ORDERED: Albuterol HFA INHALER 8 gm MDI INH PRN (17:52)
[2020-05-18] MEDS: Pantoprazole VIAL 40 MG VIAL IV SCH (19:48)
[2020-05-18] MEDS: Ondansetron 4 mg VIAL 2 MG/ML 2 ml VIAL IV PRN (19:48)
[2020-05-18] MEDS: NS 0.9% 1000 ml BAG 1,000 ML IV SCH (21:05)
[2020-05-19] MEDS: NS 0.9% 1000 ml BAG 1,000 ML IV SCH (02:47)
[2020-05-19 06:25] LABS: BUN/Creatinine Ratio 8.9 (8-20); Calcium 8.6 mg/dL (8.6-10.3); EGFR African American 87.8 (>60); EGFR Non-African American 72.6 (>60); Potassium 3.9 mmol/L (3.5-5.0)
[2020-05-19] MEDS: Pantoprazole VIAL 40 MG VIAL IV SCH (07:27)
[2020-05-19] MEDS: Ondansetron 4 mg VIAL 2 MG/ML 2 ml VIAL IV PRN (07:27)
[2020-05-19] MEDS: Carboxymethylcellulose/Glyceri 10 ML OPHTH.GEL lubricant eye gel BOTH EYES SCH ×2 (10:26→20:54)
[2020-05-20] MEDS: Pantoprazole VIAL 40 MG VIAL IV SCH (09:58)
[2020-05-20] MEDS: Carboxymethylcellulose/Glyceri 10 ML OPHTH.GEL lubricant eye gel BOTH EYES SCH (09:58)
[2020-05-20 11:08] VITALS: BP 130/78
== END 2020-05-20 13:40 | disposition home or self-care (01) | DRG 252 ==
LOC: ED 15:12 → SUATTDRO 17:49 → SSU 19:31
PROVIDERS: ADMIT Internal Medicine; ATTEND Surgery

== ENCOUNTER 2020-06-11 06:39 | Inpatient (IN) ==
[~2020-06-11 06:39] MED LIST: Buffered Lidocaine 1% SYRIN 1 ml INTRADERM ONE; Dexamethasone IV 4 MG/ML VIAL 1 ml VIAL IV SLOW PU ONE; Famotidine IV 10 MG/ML 2 ml VIAL (20 mg) IV ONE; Lactated Ringers 1000 ml BAG 1,000 ML IV SCH
[2020-06-11] MEDS ORDERED: Heparin 5000 UNITS/ML 1 mL VIAL ONE (06:48)
[2020-06-11] MEDS ORDERED: Dexamethasone IV 4 MG/ML VIAL 1 ml VIAL ONE ×2 (06:48→13:18)
[2020-06-11] MEDS ORDERED: Famotidine IV 10 MG/ML 2 ml VIAL (20 mg) ONE (06:49)
[2020-06-11] MEDS ORDERED: Clindamycin 900 MG/D5W BAG 900 MG/50 ML BAG IVPB ONE ×2 (06:49→13:37)
[2020-06-11] MEDS ORDERED: Midazolam 2 mg/2 ml VIAL 1 mg/ml 2 ml VIAL (2 mg) ONE (07:58)
[2020-06-11] MEDS ORDERED: fentaNYL 250 mcg/5 ml 50 MCG/ML 5 ml VIAL (250 MCG) ONE ×2 (07:58→11:13)
[2020-06-11] MEDS ORDERED: Methylene Blue 0.5 % 50 MG/10 ML AMP IV ONE (08:12)
[2020-06-11] MEDS ORDERED: Bupivacaine 0.25% EPI 200,000 30 ML SDV ONE (08:13)
[2020-06-11] MEDS ORDERED: Lidocaine 2% PF 5 ML VIAL ONE (08:15)
[2020-06-11] MEDS ORDERED: Rocuronium 50 mg VIAL 10 mg/ml 5 ml VIAL (50 mg) ONE ×3 (08:15→10:34)
[2020-06-11] MEDS ORDERED: Propofol 10 MG/ML 20 ML BTL ONE (08:16)
[2020-06-11] MEDS ORDERED: HYDROmorphone 1 MG/1 ML SYRINGE ONE ×2 (09:23→15:07)
[2020-06-11] MEDS ORDERED: Labetalol IV 5 MG/ML 20 ml VIAL ONE (09:56)
[2020-06-11] MEDS ORDERED: Phenylephrine 40 mcg/mL 10mL (400mcg) SYRINGE ONE (10:08)
[2020-06-11] MEDS ORDERED: Phenylephrine IV 10 MG/ML 1 ml VIAL ONE (10:52)
[2020-06-11] MEDS ORDERED: fentaNYL 100 mcg/2 ml 50 MCG/ML VIAL IV PRN (11:46)
[2020-06-11] MEDS ORDERED: Prochlorperazine 5 mg/ml 2 ml VIAL (10 mg) IV PRN (11:46)
[2020-06-11] MEDS ORDERED: Naloxone 0.4 mg VIAL 0.4 mg/ml 1 ml VIAL IV PRN (11:46)
[2020-06-11] MEDS ORDERED: Furosemide 20 mg/2 ml IV VIAL ONE (14:06)
[2020-06-11] MEDS ORDERED: NS 0.9% 500 ml BAG 500 ML IV PRN (15:00)
[2020-06-11] MEDS ORDERED: Ondansetron 4 mg VIAL 2 MG/ML 2 ml VIAL IV PRN (15:00)
[2020-06-11] MEDS ORDERED: diPHENhydraMINE IV 50 MG/ML 1 ml VIAL (BENADRYL) SLOW PUSH PRN (15:00)
[2020-06-11] MEDS ORDERED: Prochlorperazine 5 mg/ml 2 ml VIAL (10 mg) ONE (15:07)
[2020-06-11] MEDS: HYDROmorphone 1 MG/1 ML SYRINGE IV PRN ×2 (15:09→15:18)
[2020-06-11] MEDS ORDERED: Albuterol/Ipratropium NEB.SOL (2.5/0.5 MG) 3 ML NEB.SOLN INH PRN (15:16)
[2020-06-11] MEDS: Lactated Ringers 1000 ml BAG 1,000 ML IV SCH (16:30)
[2020-06-11] MEDS ORDERED: Albuterol HFA INHALER 8 gm MDI INH PRN (16:43)
[2020-06-11] MEDS: Heparin 5000 UNITS/ML 1 mL VIAL SUBCUT SCH (21:05)
[2020-06-11] MEDS: Famotidine IV 10 MG/ML 2 ml VIAL (20 mg) IV SLOW PU SCH (21:05)
[2020-06-11] MEDS ORDERED: NS 0.9% 1000 ml BAG 1,000 ML IV ONE (23:19)
[2020-06-12] MEDS: Lactated Ringers 1000 ml BAG 1,000 ML IV SCH ×2 (00:27→07:12)
[2020-06-12] MEDS: Heparin 5000 UNITS/ML 1 mL VIAL SUBCUT SCH ×3 (06:10→21:01)
[2020-06-12] MEDS: Famotidine IV 10 MG/ML 2 ml VIAL (20 mg) IV SLOW PU SCH ×2 (09:41→21:01)
[2020-06-12] MEDS: D5W 1/2 NS KCl 20 meq 1000 ml 1,000 ML IV SCH ×2 (14:51→23:15)
[2020-06-12] MEDS: HYDROcodone/ACET. 7.5/325 LIQ 15 ML UDC PO PRN (15:20)
[2020-06-12] MEDS: HYDROmorphone 0.5 MG/0.5 ML SYRINGE IV SLOW PU PRN (19:41)
[2020-06-13] MEDS: HYDROcodone/ACET. 7.5/325 LIQ 15 ML UDC PO PRN ×3 (02:22→21:09)
[2020-06-13] MEDS: Heparin 5000 UNITS/ML 1 mL VIAL SUBCUT SCH ×3 (05:12→21:10)
[2020-06-13 06:29] LABS: ABS Lymphocytes 1.8 10^3/ul (1.0-4.8); ABS Monocytes 0.7 10^3/ul (0-0.8); ABS Neutrophils 4.2 10^3/ul (1.5-7.7); Eosinophil % 0.5 %; Hematocrit 35 % (35-47); Hemoglobin 11.9 g/dL (12.0-16.0); Lymphocyte % 26.7 %; Mean Corpuscular HGB Conc 34 g/dL (31-36); Mean Corpuscular Hemoglobin 29 pg (27-31); Mean Corpuscular Volume 87 fL (80-97); Mean Platelet Volume 8.3 fL (7.4-10.4); Platelet Count 159 10^3/uL (150-450); Red Blood Count 4.06 10^6 /uL (3.70-4.87); Red Cell Distribution Width 15 % (10-15); White Blood Count 6.9 10^3/uL (3.5-10.8)
[2020-06-13 06:49] LABS: BUN/Creatinine Ratio 4.8 (8-20); Calcium 8.2 mg/dL (8.6-10.3); EGFR African American 132.5 (>60); EGFR Non-African American 109.5 (>60); Potassium 3.6 mmol/L (3.5-5.0)
[2020-06-13] MEDS: D5W 1/2 NS KCl 20 meq 1000 ml 1,000 ML IV SCH (07:21)
[2020-06-13] MEDS: HYDROmorphone 1 MG/1 ML SYRINGE IV SLOW PU PRN ×3 (07:21→16:41)
[2020-06-13] MEDS: Famotidine IV 10 MG/ML 2 ml VIAL (20 mg) IV SLOW PU SCH ×2 (08:38→21:10)
[2020-06-13] MEDS ORDERED: Pneumococcal Vac 23-Polyvalent IM ONE (09:00)
[2020-06-14] MEDS: HYDROmorphone 1 MG/1 ML SYRINGE IV SLOW PU PRN (02:41)
[2020-06-14] MEDS: Heparin 5000 UNITS/ML 1 mL VIAL SUBCUT SCH (05:05)
[2020-06-14] MEDS: HYDROcodone/ACET. 7.5/325 LIQ 15 ML UDC PO PRN (05:08)
[2020-06-14] MEDS: HYDROmorphone 0.5 MG/0.5 ML SYRINGE IV SLOW PU PRN (06:48)
[2020-06-14 08:22] VITALS: BP 120/71
[2020-06-14] MEDS: Famotidine IV 10 MG/ML 2 ml VIAL (20 mg) IV SLOW PU SCH (08:56)
[2020-06-14] MEDS ORDERED: Scopolamine PATCH Remove NOTE PATCH OFF SCH (09:00)
== END 2020-06-14 10:50 | disposition home or self-care (01) | DRG 222 ==
LOC: AA 06:39 → SSU 16:37
PROVIDERS: ADMIT Surgery; ATTEND Surgery

== ENCOUNTER 2020-06-16 11:01 | Inpatient (IN) ==
[2020-06-16] MEDS ORDERED: Ondansetron 4 mg VIAL 2 MG/ML 2 ml VIAL IV ONE (11:24)
[2020-06-16] MEDS ORDERED: Morphine 4 MG/ML VIAL (1 ml) IV ONE ×2 (11:24→12:24)
[2020-06-16 11:33] LABS: ABS Eosinophils 0.2 10^3/ul (0-0.6); ABS Lymphocytes 1.7 10^3/ul (1.0-4.8); ABS Monocytes 0.5 10^3/ul (0-0.8); Eosinophil % 2.3 %; Hematocrit 40 % (35-47); Hemoglobin 13.3 g/dL (12.0-16.0); Lymphocyte % 23.3 %; Mean Corpuscular HGB Conc 33 g/dL (31-36); Mean Corpuscular Hemoglobin 29 pg (27-31); Mean Corpuscular Volume 87 fL (80-97); Mean Platelet Volume 7.9 fL (7.4-10.4); Platelet Count 269 10^3/uL (150-450); Red Blood Count 4.63 10^6 /uL (3.70-4.87); Red Cell Distribution Width 15 % (10-15); White Blood Count 7.4 10^3/uL (3.5-10.8)
[2020-06-16 11:51] LABS: ALT 34 U/L (7-52); Albumin 3.7 g/dL (3.2-5.2); Albumin/Globulin Ratio 1.4 (1-3); Alkaline Phosphatase 89 U/L (34-104); BUN/Creatinine Ratio 6.9 (8-20); Blood Urea Nitrogen 5 mg/dL (6-24); C Reactive Protein 23.39 mg/L (<8.01); CO2 Carbon Dioxide 26 mmol/L (22-32); Calcium 9.2 mg/dL (8.6-10.3); Chloride 105 mmol/L (101-111); EGFR African American 113.6 (>60); EGFR Non-African American 93.9 (>60); Globulin 2.7 g/dL (2-4); Glucose 89 mg/dL (70-100); Sodium 137 mmol/L (135-145); Total Protein 6.4 g/dL (6.4-8.9)
[2020-06-16 12:04] LABS: Anion Gap 6 mmol/L (2-11)
[2020-06-16] MEDS ORDERED: Iohexol 300 (CONTRAST) 10 ML SDV IV ONE (12:06)
[2020-06-16] MEDS ORDERED: LORazepam 2 mg VIAL 1 ml IV PUSH ONE (12:56)
[2020-06-16] MEDS ORDERED: Lorazepam PYXIS KEY PRN ×2 (12:56→13:58)
[2020-06-16 12:57] LABS: Urine Appearance Cloudy; Urine Bilirubin Negative (Negative); Urine Blood 1+ (Negative); Urine Color Yellow; Urine Glucose Negative (Negative); Urine Ketones Trace (Negative); Urine Nitrite Positive (Negative); Urine Protein Negative (Negative); Urine Specific Gravity 1.009 (1.002-1.030); Urine Urobilinogen Positive (Negative)
[2020-06-16 13:16] LABS: Urine Bacteria 1+ (Absent); Urine Red Blood Cell Trace(0-2/hpf) (Absent); Urine White Blood Cell 3+(>20/hpf) (Absent)
[2020-06-16 13:50] LABS: Lipase 15 U/L (11.0-82.0)
[2020-06-16] MEDS ORDERED: LORazepam 2 mg VIAL 1 ml IV PUSH PRN (13:58)
[2020-06-16 16:39] LABS: INR 1.21 (0.82-1.09)
[2020-06-16 17:01] LABS: Potassium Redraw 3.7 mmol/L (3.5-5.0)
[2020-06-16] MEDS ORDERED: Albuterol/Ipratropium NEB.SOL (2.5/0.5 MG) 3 ML NEB.SOLN INH PRN (17:04)
[2020-06-16] MEDS ORDERED: Albuterol HFA INHALER 8 gm MDI INH PRN (17:21)
[2020-06-16] MEDS: D5LR 1000 ml BAG 1,000 ML IV SCH (17:28)
[2020-06-16] MEDS: HYDROcodone/ACET. 7.5/325 LIQ 15 ML UDC PO PRN ×2 (17:29→22:25)
[2020-06-16] MEDS: Heparin 5000 UNITS/ML 1 mL VIAL SUBCUT SCH (21:19)
[2020-06-16] MEDS: Famotidine IV 10 MG/ML 2 ml VIAL (20 mg) IV SLOW PU SCH (21:19)
[2020-06-16] MEDS: Ondansetron 4 mg VIAL 2 MG/ML 2 ml VIAL IV PRN (22:22)
[2020-06-17] MEDS: Heparin 5000 UNITS/ML 1 mL VIAL SUBCUT SCH ×3 (04:57→21:33)
[2020-06-17] MEDS: Morphine 2 MG/ML SYRINGE IV PRN ×3 (06:08→14:50)
[2020-06-17 08:53] LABS: ABS Eosinophils 0.2 10^3/ul (0-0.6); ABS Lymphocytes 1.7 10^3/ul (1.0-4.8); ABS Monocytes 0.4 10^3/ul (0-0.8); ABS Neutrophils 2.9 10^3/ul (1.5-7.7); Eosinophil % 3.1 %; Hematocrit 39 % (35-47); Hemoglobin 12.9 g/dL (12.0-16.0); Lymphocyte % 32.6 %; Mean Corpuscular HGB Conc 33 g/dL (31-36); Mean Corpuscular Hemoglobin 29 pg (27-31); Mean Corpuscular Volume 87 fL (80-97); Mean Platelet Volume 7.7 fL (7.4-10.4); Platelet Count 259 10^3/uL (150-450); Red Blood Count 4.45 10^6 /uL (3.70-4.87); Red Cell Distribution Width 15 % (10-15); White Blood Count 5.2 10^3/uL (3.5-10.8)
[2020-06-17 09:15] LABS: Albumin 3.6 g/dL (3.2-5.2); Albumin/Globulin Ratio 1.4 (1-3); BUN/Creatinine Ratio 8.1 (8-20); Calcium 9.3 mg/dL (8.6-10.3); EGFR African American 92.5 (>60); EGFR Non-African American 76.5 (>60); Globulin 2.6 g/dL (2-4); Potassium 3.8 mmol/L (3.5-5.0); Total Bilirubin 1.1 mg/dL (0.2-1.0); Total Protein 6.2 g/dL (6.4-8.9)
[2020-06-17] MEDS: HYDROcodone/ACET. 7.5/325 LIQ 15 ML UDC PO PRN (09:53)
[2020-06-17] MEDS: Famotidine IV 10 MG/ML 2 ml VIAL (20 mg) IV SLOW PU SCH ×2 (09:56→21:34)
[2020-06-17] MEDS: buPROPion SR 200 mg TAB.SR PO SCH (09:56)
[2020-06-17] MEDS: Neomycin/Polym/Bacit TOP OINT 15 GM TOPICAL SCH (10:00)
[2020-06-17] MEDS: CMCS: Solifenacin 5 mg TAB (NF) PO SCH (10:04)
[2020-06-17] MEDS: Ondansetron 4 mg VIAL 2 MG/ML 2 ml VIAL IV PRN ×2 (10:05→17:56)
[2020-06-17] MEDS: D5LR 1000 ml BAG 1,000 ML IV SCH ×2 (10:07→23:22)
[2020-06-17] MEDS ORDERED: oxyCODONE/Acetamin 5/325 mg TAB ONE (16:00)
[2020-06-17] MEDS: oxyCODONE/Acetamin 5/325 mg TAB PO PRN ×2 (16:03→21:34)
[2020-06-17] MEDS: Nitrofurantoin (monohydrate/macrocrystals) 100 mg CAP PO SCH (21:34)
[2020-06-18] MEDS: HYDROmorphone 0.5 MG/0.5 ML SYRINGE IV SLOW PU PRN ×3 (00:02→17:04)
[2020-06-18] MEDS: Heparin 5000 UNITS/ML 1 mL VIAL SUBCUT SCH ×3 (05:28→22:16)
[2020-06-18] MEDS: Neomycin/Polym/Bacit TOP OINT 15 GM TOPICAL SCH (08:37)
[2020-06-18] MEDS: CMCS: Solifenacin 5 mg TAB (NF) PO SCH (08:37)
[2020-06-18] MEDS: Famotidine IV 10 MG/ML 2 ml VIAL (20 mg) IV SLOW PU SCH ×2 (08:37→22:17)
[2020-06-18] MEDS: Nitrofurantoin (monohydrate/macrocrystals) 100 mg CAP PO SCH ×2 (08:38→19:57)
[2020-06-18] MEDS: buPROPion SR 200 mg TAB.SR PO SCH (08:38)
[2020-06-18] MEDS: oxyCODONE/Acetamin 5/325 mg TAB PO PRN ×3 (08:41→22:16)
[2020-06-18] MEDS: SUMAtriptan Subcut 6 MG/0.5 ML VIAL SUBCUT PRN ×2 (15:11→16:57)
[2020-06-18] MEDS: D5LR 1000 ml BAG 1,000 ML IV SCH (19:43)
[2020-06-19] MEDS: HYDROmorphone 0.5 MG/0.5 ML SYRINGE IV SLOW PU PRN ×4 (00:23→21:40)
[2020-06-19 04:45] LABS: ABS Eosinophils 0.2 10^3/ul (0-0.6); ABS Monocytes 0.5 10^3/ul (0-0.8); ABS Neutrophils 2.8 10^3/ul (1.5-7.7); Eosinophil % 3.2 %; Hematocrit 36 % (35-47); Lymphocyte % 36.9 %; Mean Corpuscular HGB Conc 34 g/dL (31-36); Mean Corpuscular Hemoglobin 29 pg (27-31); Mean Corpuscular Volume 88 fL (80-97); Mean Platelet Volume 7.6 fL (7.4-10.4); Platelet Count 254 10^3/uL (150-450); Red Blood Count 4.09 10^6 /uL (3.70-4.87); Red Cell Distribution Width 15 % (10-15); White Blood Count 5.5 10^3/uL (3.5-10.8)
[2020-06-19] MEDS: oxyCODONE/Acetamin 5/325 mg TAB PO PRN ×2 (04:53→13:30)
[2020-06-19] MEDS: Heparin 5000 UNITS/ML 1 mL VIAL SUBCUT SCH ×3 (04:54→21:04)
[2020-06-19] MEDS: Famotidine IV 10 MG/ML 2 ml VIAL (20 mg) IV SLOW PU SCH ×2 (09:19→21:04)
[2020-06-19] MEDS: Nitrofurantoin (monohydrate/macrocrystals) 100 mg CAP PO SCH ×2 (09:19→21:02)
[2020-06-19] MEDS: CMCS: Solifenacin 5 mg TAB (NF) PO SCH (09:19)
[2020-06-19] MEDS: buPROPion SR 200 mg TAB.SR PO SCH (09:20)
[2020-06-19] MEDS: Neomycin/Polym/Bacit TOP OINT 15 GM TOPICAL SCH (10:16)
[2020-06-19] MEDS: SUMAtriptan Subcut 6 MG/0.5 ML VIAL SUBCUT PRN ×2 (11:25→21:40)
[2020-06-19 13:20] LABS: Albumin 3.4 g/dL (3.2-5.2); Albumin/Globulin Ratio 1.5 (1-3); BUN/Creatinine Ratio 5.7 (8-20); Calcium 8.9 mg/dL (8.6-10.3); EGFR African American 91.3 (>60); EGFR Non-African American 75.5 (>60); Globulin 2.2 g/dL (2-4); Total Bilirubin 0.6 mg/dL (0.2-1.0); Total Protein 5.6 g/dL (6.4-8.9)
[2020-06-19] MEDS ORDERED: Butalb/Acetamin/Caff TAB 325-50-40MG PO PRN (13:44)
[2020-06-19] MEDS ORDERED: Butalb/Acetamin/Caff TAB 325-50-40MG PO ONE (14:21)
[2020-06-19] MEDS: D5LR 1000 ml BAG 1,000 ML IV SCH (14:27)
[2020-06-20] MEDS: Heparin 5000 UNITS/ML 1 mL VIAL SUBCUT SCH ×3 (05:45→20:54)
[2020-06-20] MEDS: Famotidine IV 10 MG/ML 2 ml VIAL (20 mg) IV SLOW PU SCH ×2 (08:24→20:53)
[2020-06-20] MEDS: oxyCODONE/Acetamin 5/325 mg TAB PO PRN ×3 (08:25→23:15)
[2020-06-20] MEDS: Nitrofurantoin (monohydrate/macrocrystals) 100 mg CAP PO SCH (08:26)
[2020-06-20] MEDS: buPROPion SR 200 mg TAB.SR PO SCH (08:26)
[2020-06-20] MEDS: CMCS: Solifenacin 5 mg TAB (NF) PO SCH (08:26)
[2020-06-20] MEDS: Neomycin/Polym/Bacit TOP OINT 15 GM TOPICAL SCH (10:40)
[2020-06-20] MEDS: DOXYcycline 100 MG in NS 0.9% 250 ml 250 ML IVPB SCH ×2 (12:06→23:13)
[2020-06-20] MEDS: HYDROmorphone 0.5 MG/0.5 ML SYRINGE IV SLOW PU PRN ×2 (13:01→20:49)
[2020-06-20] MEDS: D5LR 1000 ml BAG 1,000 ML IV SCH (14:17)
[2020-06-20] MEDS: Butalb/Acetamin/Caff TAB 325-50-40MG PO PRN (14:21)
[2020-06-20] MEDS: Ondansetron 4 mg VIAL 2 MG/ML 2 ml VIAL IV PRN (21:00)
[2020-06-21] MEDS: Heparin 5000 UNITS/ML 1 mL VIAL SUBCUT SCH ×3 (05:17→20:59)
[2020-06-21] MEDS: buPROPion SR 200 mg TAB.SR PO SCH (09:09)
[2020-06-21] MEDS: CMCS: Solifenacin 5 mg TAB (NF) PO SCH (09:09)
[2020-06-21] MEDS: Neomycin/Polym/Bacit TOP OINT 15 GM TOPICAL SCH (09:10)
[2020-06-21] MEDS: Famotidine IV 10 MG/ML 2 ml VIAL (20 mg) IV SLOW PU SCH ×2 (09:10→21:00)
[2020-06-21] MEDS: oxyCODONE/Acetamin 5/325 mg TAB PO PRN ×2 (09:38→20:59)
[2020-06-21] MEDS: Butalb/Acetamin/Caff TAB 325-50-40MG PO PRN (09:38)
[2020-06-21] MEDS: Ondansetron 4 mg VIAL 2 MG/ML 2 ml VIAL IV PRN ×2 (09:39→20:59)
[2020-06-21] MEDS: D5LR 1000 ml BAG 1,000 ML IV SCH (11:25)
[2020-06-21] MEDS: Aztreonam 1 GM in NS 0.9% 50 ML 50 ML IV SCH ×3 (11:25→15:34)
[2020-06-21] MEDS: HYDROmorphone 0.5 MG/0.5 ML SYRINGE IV SLOW PU PRN ×2 (11:27→18:00)
[2020-06-21] MEDS ORDERED: Iohexol 350 (CONTRAST) 500 ML MDV IV ONE (12:49)
[2020-06-22] MEDS: Aztreonam 1 GM in NS 0.9% 50 ML 50 ML IV SCH ×3 (00:21→15:32)
[2020-06-22] MEDS: Butalb/Acetamin/Caff TAB 325-50-40MG PO PRN ×3 (02:37→21:44)
[2020-06-22] MEDS: HYDROmorphone 0.5 MG/0.5 ML SYRINGE IV SLOW PU PRN ×4 (02:38→21:31)
[2020-06-22] MEDS: Heparin 5000 UNITS/ML 1 mL VIAL SUBCUT SCH ×3 (05:25→21:30)
[2020-06-22] MEDS: Famotidine IV 10 MG/ML 2 ml VIAL (20 mg) IV SLOW PU SCH ×2 (09:02→21:31)
[2020-06-22] MEDS: CMCS: Solifenacin 5 mg TAB (NF) PO SCH (09:11)
[2020-06-22] MEDS: buPROPion SR 200 mg TAB.SR PO SCH (09:11)
[2020-06-22] MEDS: oxyCODONE/Acetamin 5/325 mg TAB PO PRN ×2 (11:40→16:29)
[2020-06-22] MEDS: Neomycin/Polym/Bacit TOP OINT 15 GM TOPICAL SCH (11:40)
[2020-06-22] MEDS: D5LR 1000 ml BAG 1,000 ML IV SCH (12:59)
[2020-06-22] MEDS: Ondansetron 4 mg VIAL 2 MG/ML 2 ml VIAL IV PRN (13:02)
[2020-06-22] MEDS: Multivitamins/Minerals TAB PO SCH (15:32)
[2020-06-23] MEDS: Aztreonam 1 GM in NS 0.9% 50 ML 50 ML IV SCH ×4 (00:02→22:52)
[2020-06-23] MEDS: HYDROmorphone 0.5 MG/0.5 ML SYRINGE IV SLOW PU PRN (04:27)
[2020-06-23] MEDS: Heparin 5000 UNITS/ML 1 mL VIAL SUBCUT SCH ×3 (04:27→22:48)
[2020-06-23] MEDS: D5LR 1000 ml BAG 1,000 ML IV SCH (08:33)
[2020-06-23] MEDS: Famotidine IV 10 MG/ML 2 ml VIAL (20 mg) IV SLOW PU SCH ×2 (08:35→22:48)
[2020-06-23] MEDS: CMCS: Solifenacin 5 mg TAB (NF) PO SCH (08:36)
[2020-06-23] MEDS: Butalb/Acetamin/Caff TAB 325-50-40MG PO PRN (08:37)
[2020-06-23] MEDS: Multivitamins/Minerals TAB PO SCH (08:38)
[2020-06-23] MEDS: Neomycin/Polym/Bacit TOP OINT 15 GM TOPICAL SCH (08:39)
[2020-06-23] MEDS: buPROPion SR 200 mg TAB.SR PO SCH (08:39)
[2020-06-23] MEDS: oxyCODONE/Acetamin 5/325 mg TAB PO PRN ×3 (08:45→22:45)
[2020-06-23 08:57] LABS: Vitamin D Total 25(OH) 12.5 ng/mL (20-50)
[2020-06-23] MEDS ORDERED: methylPREDNISolone 125 mg 2 ML VIAL IV ONE (12:53)
[2020-06-23] MEDS ORDERED: Metoclopramide 5 MG/ML VIAL (10 mg) IV SLOW PU ONE (12:54)
[2020-06-23] MEDS ORDERED: diPHENhydraMINE IV 50 MG/ML 1 ml VIAL (BENADRYL) IV ONE (12:55)
[2020-06-23] MEDS ORDERED: Magnesium Sulfate 2 gm BAG 2 GM/50 ML BAG IVPB ONE (12:55)
[2020-06-23] MEDS ORDERED: Butalb/Acetamin/Caff TAB 325-50-40MG PO PRN (12:56)
[2020-06-23 13:38] LABS: Body Fluid Source Cerebral Spinal
[2020-06-23 15:01] LABS: Body Fluid Mono 17 %
[2020-06-24] MEDS: Heparin 5000 UNITS/ML 1 mL VIAL SUBCUT SCH ×3 (04:24→21:38)
[2020-06-24] MEDS: buPROPion SR 200 mg TAB.SR PO SCH (09:56)
[2020-06-24] MEDS: Multivitamins/Minerals TAB PO SCH (09:56)
[2020-06-24] MEDS: Aztreonam 1 GM in NS 0.9% 50 ML 50 ML IV SCH ×2 (09:57→16:37)
[2020-06-24] MEDS: Neomycin/Polym/Bacit TOP OINT 15 GM TOPICAL SCH (09:58)
[2020-06-24] MEDS: CMCS: Solifenacin 5 mg TAB (NF) PO SCH (10:00)
[2020-06-24] MEDS: oxyCODONE/Acetamin 5/325 mg TAB PO PRN ×2 (12:30→21:38)
[2020-06-25] MEDS: Heparin 5000 UNITS/ML 1 mL VIAL SUBCUT SCH ×2 (05:33→13:55)
[2020-06-25 06:54] LABS: Vitamin K Level 0.19 ng/mL (0.10-2.20)
[2020-06-25] MEDS: Multivitamins/Minerals TAB PO SCH (07:43)
[2020-06-25] MEDS: CMCS: Solifenacin 5 mg TAB (NF) PO SCH (07:43)
[2020-06-25] MEDS: buPROPion SR 200 mg TAB.SR PO SCH (07:43)
[2020-06-25] MEDS: oxyCODONE/Acetamin 5/325 mg TAB PO PRN (07:57)
[2020-06-25] MEDS: Neomycin/Polym/Bacit TOP OINT 15 GM TOPICAL SCH (07:57)
[2020-06-25 12:00] VITALS: BP 111/57
[2020-06-26 13:26] LABS: Vitamin A, S 27.9 mcg/dL (32.5-78.0)
== END 2020-06-25 14:15 | disposition home or self-care (01) ==
LOC: SSU 11:01 → ED 11:01 → SSU 15:01 → MED 06-17 21:57
PROVIDERS: ADMIT Hospitalist; ATTEND Surgery

== ENCOUNTER 2021-12-15 15:57 | Observation (INO) ==
[2021-12-15 17:05] LABS: ABS Eosinophils 0.1 10^3/ul (0-0.6); ABS Lymphocytes 2.2 10^3/ul (1.0-4.8); ABS Monocytes 0.5 10^3/ul (0-0.8); ABS Neutrophils 4.1 10^3/ul (1.5-7.7); Eosinophil % 0.9 %; Hematocrit 39 % (35-47); Hemoglobin 12.6 g/dL (12.0-16.0); Lymphocyte % 31.6 %; Mean Corpuscular HGB Conc 32 g/dL (31-36); Mean Corpuscular Hemoglobin 28 pg (27-31); Mean Corpuscular Volume 87 fL (80-97); Mean Platelet Volume 8.2 fL (7.4-10.4); Platelet Count 234 10^3/uL (150-450); Red Blood Count 4.49 10^6 /uL (3.70-4.87); Red Cell Distribution Width 13 % (10-15); White Blood Count 6.9 10^3/uL (3.5-10.8)
[2021-12-15 17:09] LABS: Urine Appearance Clear; Urine Bilirubin Negative (Negative); Urine Blood Negative (Negative); Urine Color Yellow; Urine Glucose Negative (Negative); Urine Ketones Negative (Negative); Urine Nitrite Negative (Negative); Urine Protein Negative (Negative); Urine Specific Gravity 1.016 (1.002-1.030); Urine Urobilinogen Positive (Negative)
[2021-12-15 17:14] LABS: Urine Bacteria 1+ (Absent); Urine Red Blood Cell Trace(0-2/hpf) (Absent); Urine Squamous Epithelial Cell Present (Absent); Urine White Blood Cell Trace(0-5/hpf) (Absent)
[2021-12-15 17:56] LABS: ALT 9 U/L (7-52); AST 11 U/L (13-39); Albumin/Globulin Ratio 1.7 (1-3); Alkaline Phosphatase 78 U/L (35-149); Anion Gap 3 mmol/L (2-11); Blood Urea Nitrogen 9 mg/dL (6-24); C Reactive Protein < 1.00 mg/L (<8.01); CO2 Carbon Dioxide 30 mmol/L (22-32); Calcium 8.6 mg/dL (8.6-10.3); Chloride 106 mmol/L (101-111); Globulin 2.3 g/dL (2-4); Glucose 80 mg/dL (70-100); Lipase 31 U/L (11.0-82.0); Potassium 4.2 mmol/L (3.5-5.0); Sodium 139 mmol/L (135-145); Total Protein 6.3 g/dL (6.4-8.9); eGFR CKD-EPI 90.9 (>60)
[2021-12-15] MEDS ORDERED: NS 0.9% 1000 ml BAG 1,000 ML IV ONE (21:52)
[2021-12-15] MEDS ORDERED: Ondansetron 4 mg VIAL 2 MG/ML 2 ml VIAL IV ONE (22:08)
[2021-12-15] MEDS ORDERED: Pantoprazole VIAL 40 MG VIAL IV ONE (22:09)
[2021-12-15] MEDS ORDERED: Thiamine 100 MG/ML 2 ml VIAL 100 MG, Folic Acid IV 1 MG, Multiple Vitamin IV ADULT 10 M... IV ONE (22:09)
[2021-12-15] MEDS ORDERED: Metoclopramide 5 MG/ML VIAL (10 mg) IV SLOW PU ONE (23:29)
[2021-12-15] MEDS ORDERED: Morphine 4 MG/ML VIAL (1 ml) IV ONE (23:30)
[2021-12-16] MEDS ORDERED: Morphine 4 MG/ML VIAL (1 ml) IV ONE (01:42)
[2021-12-16] MEDS ORDERED: Prochlorperazine 5 mg/ml 2 ml VIAL (10 mg) IV ONE (03:08)
[2021-12-16] MEDS ORDERED: Iohexol 350 (CONTRAST) 500 ML MDV IV ONE (04:57)
[2021-12-16] MEDS ORDERED: Cyanocobalamin INJ 1,000 MCG/ML VIAL 1 ML VIAL IM ONE (09:47)
[2021-12-16] MEDS: Pantoprazole VIAL 40 MG VIAL IV SCH (10:55)
[2021-12-16] MEDS: Ondansetron 4 mg VIAL 2 MG/ML 2 ml VIAL IV PRN ×2 (10:56→22:24)
[2021-12-16] MEDS: Lactated Ringers 1000 ml BAG 1,000 ML IV SCH ×2 (12:43→22:32)
[2021-12-16] MEDS: HYDROmorphone 0.5 MG/0.5 ML SYRINGE IV SLOW PU PRN ×2 (13:23→18:51)
[2021-12-16] MEDS ORDERED: Midazolam 5 mg/5 ml VIAL 1 mg/ml 5 ml VIAL (5 mg) ONE (16:20)
[2021-12-16] MEDS ORDERED: fentaNYL 100 mcg/2 ml 50 MCG/ML VIAL ONE (16:20)
[2021-12-17] MEDS: HYDROmorphone 0.5 MG/0.5 ML SYRINGE IV SLOW PU PRN ×5 (05:34→20:33)
[2021-12-17] MEDS: Ondansetron 4 mg VIAL 2 MG/ML 2 ml VIAL IV PRN ×2 (05:36→18:32)
[2021-12-17] MEDS: Lactated Ringers 1000 ml BAG 1,000 ML IV SCH ×3 (05:49→23:03)
[2021-12-17 06:08] LABS: ABS Eosinophils 0.1 10^3/ul (0-0.6); ABS Lymphocytes 2.2 10^3/ul (1.0-4.8); ABS Monocytes 0.4 10^3/ul (0-0.8); ABS Neutrophils 2.7 10^3/ul (1.5-7.7); Hematocrit 35 % (35-47); Hemoglobin 11.7 g/dL (12.0-16.0); Lymphocyte % 40.6 %; Mean Corpuscular HGB Conc 33 g/dL (31-36); Mean Corpuscular Hemoglobin 29 pg (27-31); Mean Corpuscular Volume 87 fL (80-97); Mean Platelet Volume 8.4 fL (7.4-10.4); Nucleated Red Blood Cells % 0.1; Platelet Count 199 10^3/uL (150-450); Red Blood Count 4.07 10^6 /uL (3.70-4.87); Red Cell Distribution Width 13 % (10-15); White Blood Count 5.5 10^3/uL (3.5-10.8)
[2021-12-17 06:34] LABS: CO2 Carbon Dioxide 29 mmol/L (22-32); Chloride 106 mmol/L (101-111); Potassium 4.2 mmol/L (3.5-5.0); Sodium 139 mmol/L (135-145)
[2021-12-17 06:35] LABS: ALT 49 U/L (7-52); AST 47 U/L (13-39); Albumin 3.5 g/dL (3.2-5.2); Albumin/Globulin Ratio 1.8 (1-3); Alkaline Phosphatase 112 U/L (35-149); Anion Gap 4 mmol/L (2-11); Blood Urea Nitrogen 6 mg/dL (6-24); C Reactive Protein < 1.00 mg/L (<8.01); Calcium 8.6 mg/dL (8.6-10.3); Globulin 1.9 g/dL (2-4); Glucose 71 mg/dL (70-100); Lipase 43 U/L (11.0-82.0); Total Protein 5.4 g/dL (6.4-8.9); eGFR CKD-EPI 90.9 (>60)
[2021-12-17] MEDS: Pantoprazole VIAL 40 MG VIAL IV SCH (09:47)
[2021-12-17] MEDS ORDERED: Cyanocobalamin INJ 1,000 MCG/ML VIAL 1 ML VIAL IM SCH (21:30)
[2021-12-18] MEDS: HYDROmorphone 0.5 MG/0.5 ML SYRINGE IV SLOW PU PRN ×2 (05:08→11:37)
[2021-12-18] MEDS: Lactated Ringers 1000 ml BAG 1,000 ML IV SCH (05:57)
[2021-12-18] MEDS ORDERED: Influenza vaccine *QUAD* *2022-23* 0.5 ML SYRINGE IM ONE (09:00)
[2021-12-18 11:02] VITALS: BP 117/78
[2021-12-18 12:30] LABS: Albumin 3.6 g/dL (3.2-5.2); Albumin/Globulin Ratio 1.8 (1-3); Calcium 8.6 mg/dL (8.6-10.3); Potassium 4.2 mmol/L (3.5-5.0); Total Bilirubin 0.9 mg/dL (0.2-1.0); Total Protein 5.6 g/dL (6.4-8.9); eGFR CKD-EPI 97.6 (>60)
[2021-12-18] MEDS: Ondansetron 4 mg VIAL 2 MG/ML 2 ml VIAL IV PRN (13:00)
== END 2021-12-18 16:10 | disposition home or self-care (01) ==
LOC: ED 15:57 → EDHOLD 15:57 → SSU 12-16 12:54
PROVIDERS: ADMIT Surgery; ATTEND Surgery

== ENCOUNTER 2022-11-22 16:23 | Observation (INO) ==
[2022-11-22] MEDS ORDERED: Iodixanol (CONTRAST) 320 MG/ML 100 ML SDV IV ONE (16:44)
[2022-11-22 16:46] LABS: ABS Eosinophils 0.1 10^3/uL (0.0-0.5); ABS Lymphocytes 3.2 10^3/uL (1.0-4.8); ABS Monocytes 0.4 10^3/uL (0.0-0.9); ABS Neutrophils 3.3 10^3/uL (1.5-7.6); ABS Nucleated RBC 0.01 10^3/ul; Eosinophil % 0.8 %; Hematocrit 44.2 % (35-45); Hemoglobin 15.1 g/dL (11.5-14.3); Lymphocyte % 45.8 %; Mean Corpuscular Hemoglobin 31.1 pg (27-33); Mean Corpuscular Hgb Conc 34.2 g/dL (31-36); Mean Corpuscular Volume 90.9 fL (80-97); Mean Platelet Volume 7.7 fL (7.5-11.2); Nucleated Red Blood Cells % 0.1 /100 WBC (0.0-0.4); Platelet Count 240 10^3/uL (150-450); Red Blood Count 4.86 10^6/uL (3.63-4.92); Red Cell Distribution Width 14.8 % (12-17)
[2022-11-22] MEDS ORDERED: levETIRAcetam 1000MG IVPREMIX 1,000 MG/100 ML BAG IVPB ONE (16:56)
[2022-11-22 17:01] LABS: Albumin 4.6 g/dL (3.2-5.2); Anion Gap 4 mmol/L (2-16); CO2 Carbon Dioxide 31 mmol/L (22-32); Calcium 9.2 mg/dL (8.6-10.3); Chloride 105 mmol/L (101-111); Indirect Bilirubin 0.5 mg/dL (0.3-1.0); Potassium 3.7 mmol/L (3.5-5.0); Sodium 140 mmol/L (135-145)
[2022-11-22 17:07] LABS: ALT 20 U/L (7-52); AST 17 U/L (13-39); Albumin/Globulin Ratio 1.7 (1-3); Alkaline Phosphatase 95 U/L (35-149); Blood Urea Nitrogen 6 mg/dL (6-24); C Reactive Protein < 1.00 mg/L (<8.01); Cholesterol 137 mg/dL; Creatinine, Serum 1.02 mg/dL (0.51-0.95); Globulin 2.7 g/dL (2-4); Glucose 95 mg/dL (70-100); HDL Cholesterol 31.6 mg/dL; LDL Cholesterol 78 mg/dL; Total Protein 7.3 g/dL (6.4-8.9); Triglycerides 137 mg/dL; eGFR CKD-EPI 73.6 (>60)
[2022-11-22 18:32] LABS: Urine Appearance Clear; Urine Bilirubin Negative (Negative); Urine Blood Negative (Negative); Urine Color Yellow; Urine Glucose Negative (Negative); Urine Ketones Negative (Negative); Urine Nitrite Negative (Negative); Urine Protein Negative (Negative); Urine Specific Gravity 1.014 (1.002-1.030); Urine Urobilinogen Negative (Negative)
[2022-11-22 18:37] LABS: Urine Bacteria Absent (Absent); Urine Red Blood Cell Trace(0-2/hpf) (Absent); Urine White Blood Cell 2+(11-20/hpf) (Absent)
[2022-11-22 18:39] LABS: Erythrocyte Sed Rate 0 mm/Hr (0-19)
[2022-11-22] MEDS ORDERED: Albuterol/Ipratropium NEB.SOL (2.5/0.5 MG) 3 ML NEB.SOLN INH PRN (18:40)
[2022-11-22] MEDS ORDERED: NON FORMULARY MED (Acetaminophen [Tylenol Extra Strength] 500 mg Tablet) PO PRN (18:40)
[2022-11-22] MEDS ORDERED: Morphine 15 mg TAB (NF) PO PRN ×2 (18:40→18:56)
[2022-11-22 18:46] LABS: Urine Benzodiazepine Screen None Detected (None Detect); Urine Buprenorphine Screen None Detected (None Detect); Urine Cannabinoids Screen None Detected (None Detect); Urine Fentanyl Screen None Detected (None Detect); Urine Hydrocodone Screen None Detected (None Detect); Urine Opiates Screen None Detected (None Detect)
[2022-11-22] MEDS ORDERED: Enoxaparin 40 MG/0.4 ML SYR SUBCUT SCH (20:00)
[2022-11-22] MEDS: Ondansetron ODT 4 mg TAB 4 MG TAB PO PRN (21:11)
[2022-11-23] MEDS: Morphine ORAL.SOLN 10 mg 2 mg/ml UDC 5 ml (10 mg) PO PRN ×2 (00:27→05:55)
[2022-11-23 05:32] LABS: Calcium 8.4 mg/dL (8.6-10.3); Potassium 3.4 mmol/L (3.5-5.0)
[2022-11-23 05:38] LABS: Creatinine, Serum 0.94 mg/dL (0.51-0.95); eGFR CKD-EPI 81.2 (>60)
[2022-11-23] MEDS ORDERED: Potassium Chlor 20 meq TAB.ER PO ONE (07:19)
[2022-11-23] MEDS ORDERED: LORazepam 2 mg VIAL 1 ml IV PUSH ONE ×2 (08:12→12:25)
[2022-11-23] MEDS ORDERED: Lorazepam PYXIS KEY PRN ×2 (08:12→12:25)
[2022-11-23] MEDS ORDERED: DULoxetine DR 30 mg CAP PO SCH (09:00)
[2022-11-23] MEDS: Ondansetron ODT 4 mg TAB 4 MG TAB PO PRN (09:13)
[2022-11-23] MEDS ORDERED: Gadoteridol (CONTRAST) 279.3 MG/ML 10 ML IV ONE (14:03)
[2022-11-23] MEDS ORDERED: Acetaminophen IV 1 GM/100ML 1,000 MG/100 ML BAG IV ONE (15:20)
[2022-11-23 18:07] VITALS: BP 154/104
== END 2022-11-23 18:05 | disposition home or self-care (01) ==
LOC: ED 16:23 → EDHOLD 16:23
PROVIDERS: ADMIT Internal Medicine; ATTEND Internal Medicine